=== PATIENT | male | born 1935 | race African-American/Black ===

== ENCOUNTER 2023-11-10 22:58 | Inpatient (IN) | payer OTHER, SELFPAY ==
[2023-11-10 18:26] VITALS: BP 160/116
[2023-11-10 19:02] LABS: % Basophils 0.6 % (0-2); % Immature Granulocytes 0.4 % (0-0.5); % Lymphocytes 17.8 % (20.5-51.1); % Monocytes 11.7 % (1.7-9.3); % Neutrophils 65.5 % (42.2-75.2); Absolute Eosinophils 0.2 10^3/uL (0-0.7); Absolute Lymphocytes 0.9 10^3/uL (1.2-3.4); Absolute Monocytes 0.6 10^3/uL (0.1-0.6); Absolute Neutrophils 3.4 10^3/uL (1.4-6.5); Hematocrit 32.2 % (39.0-52.0); Hemoglobin 11.1 g/dL (13.0-18.0); Mean Corp Hgb Conc. 34.5 g/dL (33.0-37.0); Mean Corpuscular Volume 89.9 fL (80.0-94.0); Mean Platelet Volume 11.2 fL (7.4-10.4); Nucleated Red Blood Cells % 0 % (-); Platelet Count 221 10^3/uL (130-400); Red Blood Cell Count 3.58 10^6/uL (4.70-6.10); Red Cell Dist. Width 13.4 % (11.5-14.5); White Blood Cell Count 5.2 10^3/uL (4.8-10.8)
[2023-11-10 19:17] LABS: ALT (SGPT) 23 U/L (0-50); AST (SGOT) 38 U/L (17-59); Albumin 4.6 g/dl (3.5-5.0); Alkaline Phosphatase 56 U/L (38-126); Blood Urea Nitrogen 21 mg/dl (9-20); Calcium 10.1 mg/dl (8.4-10.2); Carbon Dioxide 23 mmol/L (22-30); Chloride 104 mmol/L (98-107); Glucose 123 mg/dl (70-99); Potassium 3.8 mmol/L (3.5-5.1); Sodium 138 mmol/L (135-145); Total Bilirubin 1.7 mg/dl (0.2-1.3); Total Protein 7.5 g/dl (6.3-8.2); eGFR > 60.00
--- NOTE | 2023-11-10 20:00 | ED.GENMED ---
History of Present Illness
<Laura Bradley MD, Resident - Last Filed: 11/10/23 22:46>
General
Chief Complaint: Dehydration Symptoms
Time Seen by Provider: 11/10/23 19:38
History of Present Illness
History of Present Illness:
-year-old male with history of hypertension, BPH, memory issue ? Presented to the ED with confusion, 2 episodes of falls, urinary retention, constipation. Patient is in the room with his son. His son states that patient was here in March 2023
and was diagnosed with urinary tract infection and was treated with antibiotic. The symptoms are similar to the previous. He had 2 falls yesterday, did not lose conscious, no head trauma. Patient has not had a bowel movement in the past 2 days.
His senses is not himself is more confused and sleepy. Patient states that he feels dizzy when he gets up from his bed. He was febrile with temp of 101 F. Son states that since yesterday he is not able to get up from his bed. He uses a walker to
ambulate.
Past History
<Laura Bradley MD, Resident - Last Filed: 11/10/23 22:46>
Past History
ED Past Medical History: HTN, Hypercholesterolemia and Other (BPH)
Social History
Tobacco: Non-smoker
Personal:
Employment: Retired
Review of Systems
<Laura Bradley MD, Resident - Last Filed: 11/10/23 22:46>
Review of Systems
ABD/GI: Reports constipated
: Reports difficulty voiding
Phy Exam
<Laura Bradley MD, Resident - Last Filed: 11/10/23 22:46>
Physical Exam
Physical Exam:
88 year old elderly male, conversant, comfortable
General Physical Exam
General age: appears stated age
General Habitus: elderly and frail
Neurological Exam
Neurological Exam: alert, no sensory deficits, motor weakness (3/5 bilaterally upper and lower extremities) and other (no neglect)
Course
<Laura Bradley MD, Resident - Last Filed: 11/10/23 22:46>
Orders/Labs/Results
Orders:
Orders
11/10/23 18:49
Complete Blood Count/With Diff Urgent
Comprehensive Metabolic Panel Urgent
11/10/23 18:55
CT Head W/o Iv Contrast Urgent
Comment:
Reason For Exam: fall
11/10/23 20:07
0.9% Sodium Chloride 500 ml [Nss] 500 ml IV BOLUS
11/10/23 20:09
Urinalysis Reflex To Culture Urgent
Date Specimen was Collected: 11/10/23
Time Specimen was Collected: 18:47
Urine Microscopic Reflex Cult Urgent
11/10/23 20:45
CR Chest - 2 Views Urgent
Comment:
Reason For Exam: fever
11/10/23 20:55
Acetaminophen [Tylenol] 650 mg PO NOW STA
11/10/23 21:08
Electrocardiogram (*1) Urgent
Reason for Study: Bradycardia / Tachycardia
EKG- Treatment ONCE
11/10/23 21:37
COVID-19 Antigen Urgent
Source: Nasal Swab
11/10/23 21:46
Aspirin 325 mg PO NOW STA
Clopidogrel Bisulfate [Plavix] 300 mg PO NOW STA
Abnormal Lab Results
11/10/23 11/10/23
18:49 20:09
RBC 3.58 L 10^6/uL
(4.70-6.10)
Hgb 11.1 L g/dL
(13.0-18.0)
Hct 32.2 L %
(39.0-52.0)
MPV 11.2 H fL
(7.4-10.4)
Absolute Lymphs (auto) 0.9 L 10^3/uL
(1.2-3.4)
Lymphocytes % 17.8 L %
(20.5-51.1)
Monocytes % 11.7 H %
(1.7-9.3)
BUN 21 H mg/dl
(9-20)
Glucose 123 H mg/dl
(70-99)
Total Bilirubin 1.7 H mg/dl
(0.2-1.3)
Ur Occult Blood Reflex Trace A
(Negative)
Urine Bilirubin 1+ A
(Negative)
Urine Urobilinogen 3+ A
(Neg - 1+)
Urine RBC 3-6 A /HPF
(0-2)
Urine Bacteria (Reflex) Few A
(Negative)
11/10/23 18:49
11/10/23 18:49
Vital Signs
Initial and Last Documented VS:
Initial Vital Signs
Temp Pulse Resp Pulse Ox
100.1 F 55 16 98
11/10/23 18:16 11/10/23 18:16 11/10/23 18:16 11/10/23 18:16
Last Documented Vital Signs
Temp Pulse Resp BP Pulse Ox
100.9 F H 51 19 195/141 100
11/10/23 20:49 11/10/23 22:00 11/10/23 22:00 11/10/23 22:00 11/10/23 22:00
Brysonlt;Gonzales Hernandez, DO - Last Filed: 11/10/23 21:02>
Orders/Labs/Results
Orders:
Orders
11/10/23 18:49
Complete Blood Count/With Diff Urgent
Comprehensive Metabolic Panel Urgent
11/10/23 18:55
CT Head W/o Iv Contrast Urgent
Comment:
Reason For Exam: fall
11/10/23 20:07
0.9% Sodium Chloride 500 ml [Nss] 500 ml IV BOLUS
11/10/23 20:09
Urinalysis Reflex To Culture Urgent
Date Specimen was Collected: 11/10/23
Time Specimen was Collected: 18:47
Urine Microscopic Reflex Cult Urgent
11/10/23 20:45
CR Chest - 2 Views Urgent
Comment:
Reason For Exam: fever
11/10/23 20:55
Acetaminophen [Tylenol] 650 mg PO NOW STA
11/10/23 21:08
Electrocardiogram (*1) Urgent
Reason for Study: Bradycardia / Tachycardia
EKG- Treatment ONCE
11/10/23 21:37
COVID-19 Antigen Urgent
Source: Nasal Swab
11/10/23 21:46
Aspirin 325 mg PO NOW STA
Clopidogrel Bisulfate [Plavix] 300 mg PO NOW STA
Abnormal Lab Results
11/10/23 11/10/23
18:49 20:09
RBC 3.58 L 10^6/uL
(4.70-6.10)
Hgb 11.1 L g/dL
(13.0-18.0)
Hct 32.2 L %
(39.0-52.0)
MPV 11.2 H fL
(7.4-10.4)
Absolute Lymphs (auto) 0.9 L 10^3/uL
(1.2-3.4)
Lymphocytes % 17.8 L %
(20.5-51.1)
Monocytes % 11.7 H %
(1.7-9.3)
BUN 21 H mg/dl
(9-20)
Glucose 123 H mg/dl
(70-99)
Total Bilirubin 1.7 H mg/dl
(0.2-1.3)
Ur Occult Blood Reflex Trace A
(Negative)
Urine Bilirubin 1+ A
(Negative)
Urine Urobilinogen 3+ A
(Neg - 1+)
Urine RBC 3-6 A /HPF
(0-2)
Urine Bacteria (Reflex) Few A
(Negative)
11/10/23 18:49
11/10/23 18:49
Vital Signs
Initial and Last Documented VS:
Initial Vital Signs
Temp Pulse Resp Pulse Ox
100.1 F 55 16 98
11/10/23 18:16 11/10/23 18:16 11/10/23 18:16 11/10/23 18:16
Last Documented Vital Signs
Temp Pulse Resp BP Pulse Ox
100.9 F H 51 19 195/141 100
11/10/23 20:49 11/10/23 22:00 11/10/23 22:00 11/10/23 22:00 11/10/23 22:00
<Laura Bradley MD, Resident - Last Filed: 11/10/23 22:46>
*Critical Care Note
Total Time (30-74mins, 75-104mins- exclusive of procedures): Not Applicable
<Laura Bradley MD, Resident - Last Filed: 11/10/23 22:46>
Update Note
Update Note:
88-year-old male presented with confusion, dizziness, [address] episodes of [address] Head CT showed left cerebellar infarct.
Neurology was consulted. Loading dose of aspirin to 325 mg p.o. and Plavix 300 mg p.o. to be given. BP to be maintained <200 systolic. Losartan 50 mg PO given now.
EKG shows sinus arrhythmia with premature ventricular complexes.
UA is not indicative for UTI but can potentially be the source of infection and cause of fever.
Plan is to admit the patient for left cerebellar infarct.
Plan discussed with Dr Longoria and Dr Ivey.
ED Attending Note
<Laura Bradley MD, Resident - Last Filed: 11/10/23 22:46>
-
Portions of this chart may have been created with voice recognition software.� Occasional wrong word or��sound alike� substitutions may have occurred due to the inherent limitations of voice recognition software.
<Gonzales GracielaAmina David, DO - Last Filed: 11/10/23 21:02>
ED Attending Note
Patient seen and examined by attending physician: Yes
I performed a history and physical exam of patient and discussed management with resident, I reviewed resident's note and agree with documented findings and plan of care.: Yes
ED Attending Note:
Patient presents with increased confusion, difficulty walking, dizzy, falls. Apparently he was noted to have decreased urine output as well as some constipation.
General: Awake, sleepy but arousable. Is pleasant when he is awake. Seems somewhat confused
Vitals: Hypertensive
Head: Atraumatic
Eyes: Pupils equal, EOMI
Throat: Airway intact, no exudates
Neck: Trachea midline
Lungs: Clear and equal b/l
Heart: Regular rate, no murmurs
Abd: Soft, Nontender, No pulsatile mass
Neuro: Seems generally weak, difficult to assess cerebellar exam as he does not follow the instructions to perform evutdw-ft-ymes or rdce-tx-hxid very well. No significant facial droop
Skin: Warm, dry, no rash
Extremities: pulses equal b/l, no edema
Testing initiated by nursing protocol prior to evaluation shows a CBC which does not have any significant abnormalities. His chemistries show mild elevation of his bilirubin which is likely insignificant. Urinalysis is not consistent with a
urinary tract infection. CT of the head shows a subacute left cerebellar infarct which certainly may explain the patient's symptoms. Dr. Bradley will communicate with neurology for recommendations. Patient is noted to be hypertensive on at least 1
measurement. Will discuss blood pressure parameter suggestions with neurology. EKG is pending.
Discharge Plan
Departure
Patient Disposition: Admit
Date of Disposition: 11/10/23
Time of Disposition: 20:58
Presentation/result/management discussed w/ accepting MD/DO: Hospitalist
Patient with high blood pressure during this ER visit?: Yes
Discharge Problem:
left cerebellar infarct
Prescriptions:
No Action
tamsulosin 0.4 MG capsule
0.4 mg PO DAILY
atorvastatin 10 mg tablet
10 mg PO HS
acetaminophen [Tylenol] 325 mg Tablet
325 mg PO Q6HPRN PRN (Reason: mild pain)
donepezil 10 mg Tablet
10 mg PO HS
pyridoxine (vitamin B6) 100 mg Tablet
100 mg PO HS
losartan 100 mg Tablet
50 mg PO DAILY
cholecalciferol (vitamin D3) [Vitamin D3] 125 mcg (5,000 unit) Tablet
125 mcg PO DAILY
dorzolamide (PF) 2 % Drops
1 drp BOTH EYES DAILY
Referrals:
Rose Kahn DO [Family Provider] - Follow up in 1 week
Activity Restrictions/Additional Instructions:
Please return to the ED with repeated vomiting, chest pain, shortness of breath, palpitations. Close follow-up with family doctor outpatient
Interventions
Interventions:
*Risk Screen - Suicide Last Done: 11/10/23 19:00
ED- Fall Risk Assessment Last Done: 11/10/23 19:00
ED- Cardiac Assessment Last Done: 11/10/23 19:00
ED- Neurological Assessment Last Done: 11/10/23 19:00
ED- Pulmonary Assessment Last Done: 11/10/23 19:00
Discharge Date and Time
Print Language: GREENLANDIC
[2023-11-10 20:08] VITALS: BP 192/108
[2023-11-10] MEDS: NSS 500 IV (20:28)
[2023-11-10 20:29] LABS: Urine Albumin Trace (Neg - Trace); Urine Bilirubin 1+ (Negative); Urine Character Clear (Clear); Urine Color Yellow; Urine Glucose Negative (Negative); Urine Ketone Negative (Negative); Urine Leukocyte Negative (Negative); Urine Nitrite Negative (Negative); Urine Occult Blood Trace (Negative); Urine Specific Gravity 1.015 (<1.030); Urine Urobilinogen 3+ (Neg - 1+)
[2023-11-10 20:38] LABS: Urine Bacteria Few (Negative); Urine Squamous Cell 0-2 /LPF (Few); Urine White Cell 0-2 /HPF (0-5)
[2023-11-10] MEDS: TYLENOL 650 MG PO (20:59)
[2023-11-10 21:00] VITALS: BP 191/110
[2023-11-10 21:34] VITALS: BP 199/105
[2023-11-10 21:55] LABS: COVID-19 Antigen Negative (Negative)
[2023-11-10] MEDS: ASPIRIN 325 MG PO (21:55)
[2023-11-10] MEDS: PLAVIX 300 MG PO (21:55)
[2023-11-10 22:00] VITALS: BP 195/141
--- NOTE | 2023-11-10 22:22 | HPS.HSE ---
Family Physician
-
Family Physician: Sebastián Kahn,
Chief Complaint
-
confusion
fall
sleeping
History of Present Illness
88 year old with PMH for confusion, sleeping more than usual, lethargic since yesterday. he fell yesterday . son is unsure how he fell. since the fall, patient is very weak, tired and sleeping more than usual. as per son, he felt very warm today. he
noticed some mild cough. denied sob, chest pain. patient denied BARNES, dizzy or syncopal episode. denied abdominal pain,n,v,d. denied dysuria or hematuria.
head CT with subacute infract. patient received asa and Plavix in Er. admitting for further management.
Medical History
Past Medical History
Past Medical History: Reports Other
Additional Past Medical History:
BPH
HTN
hld
demential
Alzheimer
type 2 Dm
PVD
Past Surgical History: Reports Other
Additional Past Surgical History:
hernia repair
bladder surgery
Social History
Tobacco: Non-smoker
Alcohol: None
Drug: None
Living: With Family
Family History
Family History: Not pertinent
Allergies / Home Medications
Allergies reflects when Allergies were last updated in [facility].
Home Medications with original date entered in [facility]
Allergy/Medication List:
Allergies
Allergy/AdvReac Type Severity Reaction Status Date / Time
No Known Allergies Allergy Verified 11/10/19 17:44
Home Medications
tamsulosin 0.4 mg capsule 0.4 mg PO DAILY Urinary Issue 07/02/18
atorvastatin 10 mg tablet 10 mg PO HS High Cholesterol 04/15/23
acetaminophen 325 mg tablet (Tylenol) 325 mg PO Q6HPRN PRN mild pain 11/10/23
cholecalciferol (vitamin D3) 125 mcg (5,000 unit) tablet (Vitamin D3) 125 mcg PO DAILY 11/10/23
donepezil 10 mg tablet 10 mg PO HS 11/10/23
dorzolamide (PF) 2 % (PF) eye drops 1 drp BOTH EYES DAILY 11/10/23
losartan 100 mg tablet 50 mg PO DAILY 11/10/23
pyridoxine (vitamin B6) 100 mg tablet 100 mg PO HS 11/10/23
Review of Systems
-
Constitutional: Reports Fatigue
EENT: Reports No Symptoms
Respiratory: Reports Cough
Cardiac: Reports No Symptoms
Abdomen/GI: Reports No Symptoms
: Reports No Symptoms
Musculoskeletal: Reports No Symptoms
Skin: Reports No Symptoms
Neurological: Reports Weakness
Endocrine: Reports No Symptoms
Hematologic/Lymphatic: Reports No Symptoms
Psych: Reports No Symptoms
Physical Exam
Vital Signs
Vital Signs
Temp Pulse Resp BP Pulse Ox
100.9 F H 51 19 195/141 100
11/10/23 20:49 11/10/23 22:00 11/10/23 22:00 11/10/23 22:00 11/10/23 22:00
Physical Exam
General: Well Developed, Well Nourished and No Apparent Distress
HEENT: NormoCephalic, Moist mucous membranes and Atraumatic
Respiratory: Clear
Cardiac: S1/S2 and Regular Rhythm; No Murmur or Rub
GI: Soft, Non Tender, Non Distended and Normal Bowel Sounds; No Organomegaly
Rectal: Deferred by Provider
Musculoskeletal: No Clubbing, No Cyanosis and No Edema
Skin: No Rash
Neuro: Nonfocal/grossly intact
Psych: Confused
Laboratory Results
-
11/10/23 18:49
11/10/23 18:49
Laboratory Results
Total Bilirubin 1.7 mg/dl (0.2-1.3) H 11/10/23 18:49
AST 38 U/L (17-59) 11/10/23 18:49
ALT 23 U/L (0-50) 11/10/23 18:49
Alkaline Phosphatase 56 U/L (38-126) 11/10/23 18:49
Data Reviewed
-
CT Scan: Report Reviewed by me
Lab Data: Labs Reviewed by me
Impression/Plan
-
#confusion/dizziness/fall likely from subacute infract vs active infection
-head CT with left cerebellar subacute infract
-received asa 325, Plavix 300 in ER
-keep sbp<200
-continue asa and Plavix
-obtain ECHO in am , MRI in am
-PT/OT
-neurology following
#fever unclear cause likely aspiration pneumonitis
-UA negative
-covid negative
-chest x ray pending
-initiated on iv Zosyn
#anemia of chronic disease
-hgb stable at 11.1
-no active bleeding
-ctm
#HLD--statin continued
#dementia--Aricept continued
#essential HTN--BP elevated--losartan held, hydralazine added for SBP>200
#BPH-Flomax continued
#DVT prophylaxis--Lovenox
#CODE status-DNR
--- NOTE | 2023-11-10 22:56 | W.PN.UPDATE ---
Update Note
Progress Note Update
This is an addendum to the H&P written by Alexsandra Lakhani on 11/10/2023. Patient seen and examined independently with [employer].
88-year-old male past medical history of hypertension, BPH, hypercholesterolemia, mild mild dementia presenting with 2 falls yesterday and generalized weakness/confusion today. No focal neurological deficits such as headache, blurry vision, slurred
speech, numbness or tingling or focal weakness noted.
Low-grade fever noted in emergency room. Patient does have slight cough. Overall clinical picture suggestive of metabolic encephalopathy due to underlying infection although urinalysis clear. CT head showed left cerebellar subacute infarct.
COVID-negative. Chest x-ray shows shows no clear pneumonia, report pending, although aspiration possible. check blood cultures. IV fluids given in ER.
Neurology recommend aspirin and Plavix. Check MRI brain, echo. Permissive hypertension up to 200 systolic. As needed hydralazine if needed.
[2023-11-10 23:00] VITALS: BP 194/117
[2023-11-10] MEDS: ZOSYN 50 IV (23:03)
[2023-11-11] VITALS (9 sets, daily range): BP systolic 123–195; BP diastolic 58–95; PULSE 55; O2SAT 98; BMI 24.6
--- NOTE | 2023-11-11 00:32 | PTCARENOTE ---
Received patient from ER via stretcher. Pt AAOX3. Forgetful at times. Bed alarm on. Family at bedside. Call prado within reach. Plan of care ongoing.
[2023-11-11 05:15] LABS: Hematocrit 26.8 % (39.0-52.0); Hemoglobin 9.3 g/dL (13.0-18.0); Mean Corp Hgb Conc. 34.7 g/dL (33.0-37.0); Mean Corpuscular Hgb 31.2 pg (27.0-31.0); Mean Corpuscular Volume 89.9 fL (80.0-94.0); Mean Platelet Volume 11.4 fL (7.4-10.4); Platelet Count 184 10^3/uL (130-400); Red Blood Cell Count 2.98 10^6/uL (4.70-6.10); Red Cell Dist. Width 13.2 % (11.5-14.5); White Blood Cell Count 5.3 10^3/uL (4.8-10.8)
[2023-11-11] MEDS: ZOSYN 50 IV ×2 (05:46→12:25)
[2023-11-11] MEDS: FLUSH (NSS) 1 FLUSH IV (05:47)
[2023-11-11 05:49] LABS: Blood Urea Nitrogen 19 mg/dl (9-20); Calcium 9.2 mg/dl (8.4-10.2); Carbon Dioxide 25 mmol/L (22-30); Chloride 106 mmol/L (98-107); Estimated Creatinine Clearance 38 ml/min; Glucose 87 mg/dl (70-99); HDL Cholesterol 81 mg/dl; LDL Cholesterol, Calculated 52 mg/dl; Potassium 3.7 mmol/L (3.5-5.1); Sodium 137 mmol/L (135-145); Total Cholesterol 142 mg/dl (50-199); Triglyceride 49 mg/dl (10-149); Very Low Density Lipoprotein 9 mg/dl (0-30); eGFR 57.81
--- NOTE | 2023-11-11 09:07 | CON.NEURO4 ---
Addendum entered and electronically signed by Destin Gutierrez MD 11/11/23 14:02:
Studies reviewed.
I have personally examined the patient. I reviewed and agree with the RETAIL FIELD REPRESENTATIVE's Note.
My addenda:
Awake, lethargic, interactive. No acute distress.
Speech dysarthric.
Follows 2-step requests w/ difficulty. No tremor.
Extra-ocular movements grossly reduced with upgaze and downgaze.
Facial movements full and symmetric. Hearing intact to normal conversational volume.
Normal UE movements bilaterally.
Neck: full ROM.
Chest: no dyspnea
Heart: no JVD
Ext: (-) Clubbing, (-) Cyanosis, (-) Edema
IMPRESSIONS/RECOMMENDATIONS:
Abrupt onset of worsening mental status and recurrent falls
Most likely secondary to left cerebellar stroke and possible mild edema secondary to same. The period of edema is most likely maximal after 3 days at which time the patient should have improved mentation
Unfortunately, evaluation of the patient's posterior circulation will not change therapy as the patient will require routine antiplatelet agents
Provide dual antiplatelet therapy for 21 days then aspirin without clopidogrel
Continue atorvastatin as LDL is at goal
Goal of normotension
Rehabilitation evaluations
D/W patient
Will continue to follow peripherally
Original Note:
Documented by User: Sherine Ga NP 11/11/23 11:44
Consultation - Neurology 4
-
CONSULTING PHYSICIAN: Destin Gutierrez MD
REFERRING PHYSICIAN: Hospitalists/SAMY Hale
DICTATED BY: SAMY Meek
DATE/TIME OF REQUEST: 11/10/23
DATE/TIME OF CONSULTATION: 11/11/23
Reason for Consultation: CVA
History of Present Illness:
This is a 88-year-old male with a PMH of dementia, HTN, HLD, NIDDM, and tremor who has presented to the hospital on 11/10/23 with report of generalized weakness, dizziness, two falls at home, and worsened confusion starting two days ago on 11/09/23.
CT head was obtained on arrival in the ER and demonstrates a left cerebellar subacute ischemic infarct. He was not a candidate for TNK/IAT due to being outside of the time window. He was loaded with DAPT in the ER. Patient has been hypertensive
since arrival up to 199/105. CXR is suggestive of a left mid to lower pneumonia. Patient currently is very lethargic, only opens his eyes briefly with verbal stimulation and falls back asleep mid sentence. He endorses falling in the shower at home
two days ago, otherwise he cannot provide much history. He denies any headache, dizziness, speech/swallow difficulty, numbness, weakness, chest pain, palpitations, and shortness of breath. He was not previously taking any blood-thinning medications
and he has no history of stroke. He lives with his daughter who is his caregiver. He is taking donepezil 10mg daily, unclear if he is followed by a Neurologist. MMSE was 1630 in 2021.
Past Medical History: Dementia, HTN, HLD, NIDDM, BPH, erectile dysfunction, mitral stenosis/insufficiency, anemia, PVD, constipation, essential tremor, frequent falls, ambulatory dysfunction
Surgical History: Hernia repair, bladder surgery
Family History: Mother-CVA.
Social History: Former smoker. Rare alcohol. Denies illicit drug use. Lives with daughter who is his caregiver.
Allergies: No known allergies.
Home Medications: See below.
Review of Symptoms:
Patient denies any fever, headache, chest pain, shortness of breath, GI or symptoms.
�Per the HPI.�All systems are reviewed negative except above.
Physical Exam:
The patient is afebrile, abdomen is nondistended, breathing is unlabored, skin is warm and dry, no edema. Atrophy in bilateral hands.
NIH Stroke Scale:
I performed the NIH stroke scale on the patient on 11/11/23 at 0915. The patient scored 3 points on the NIH stroke scale assessment, which were assigned as follows: See below.
Neurologic Examination:
The patient is lethargic. Closes eyes frequently, opens eyes briefly to verbal stimuli. He is oriented x3. He is able to follow some one-step commands (limited due to drowsiness) and answer questions appropriately. There is no aphasia or
dysarthria. On cranial nerve assessment, pupils are 3 mm bilateral, round and reactive to light and accommodation. Visual barboza are challenging to assess due, appear absent in all barboza in the right eye?. Extraocular movements are restricted with
up and down gaze. There is no facial asymmetry. Hearing is diminished bilaterally to normal conversation volume. Tongue palate and uvula are midline. Sternocleidomastoid strengths are full bilaterally. Motor strengths are 5/5 bilateral upper and
lower extremities on medical research [place] scale. There is no drift or involuntary movement noted. Deep tendon reflexes are 1+ bilateral upper and lower extremities and Babinski is absent bilaterally. There was no extinction noted on double
simultaneous stimulation. Coordination is intact by finger to nose bilaterally.
Lab Results: See below.
Neuro Imaging:
1. CT Head 11/10/23: Left cerebellar subacute infarct. No evidence of herniation. No acute intracranial hemorrhage. No skull fracture.
Differentials for the patient's presentation include:
1. Subacute left cerebellar ischemic stroke demonstrated on CT head imaging; concern for more extensive area of infarct given profound visual disturbance on exam.
2. TME in the setting of pneumonia.
Patient has the following risk factors for their symptoms: HTN, HLD, age, pneumonia, dementia
IV Tenecteplase/IAT candidacy: He was not a candidate for TNK/IAT due to being outside of the time window.
Recommendations:
-Continue DAPT with aspirin 81mg and Plavix 75mg daily for 21 days. After 21 days, discontinue Plavix and continue aspirin 81mg daily only, indefinitely.
-Goal normotension (SBP<180) as symptom onset was greater than 24 hours ago.
-MRI brain noncontrast pending.
-TTE pending.
-LDL goal <70. LDL is 52. Okay to continue home atorvastatin 10mg daily as LDL is at goal.
-Goal normoglycemia, hbA1c is pending.
-NIHSS and neurological checks per unit guidelines.
-Provide patient with a stroke education packet.
-PT/OT/ST evaluations.
-DVT prophylaxis.
-Will follow pending results.
Discussed patient care with: Dr. Gutierrez, the patient
Vital Signs and Labs
.
Vital Signs and Labs:
Lab Results
11/11/23 04:22
11/11/23 04:22
Temp Pulse Resp BP Pulse Ox
98.3 F 41 16 195/95 99
11/11/23 07:15 11/11/23 07:15 11/11/23 07:15 11/11/23 07:15 11/11/23 07:15
Medications
-
Active Medications
Generic Name Dose Route Start Last Admin
Trade Name Freq PRN Reason Stop Dose Admin
Acetaminophen 650 mg 11/10/23 23:43
Acetaminophen 650 Mg Rectal Suppository RECTAL 12/08/23 23:42
Q4HPRN PRN
BARNES, mild pain, or temp >100.4F
Acetaminophen 650 mg 11/10/23 23:43
Acetaminophen 325 Mg Tablet PO 12/08/23 23:42
Q4HPRN PRN
BARNES, mild pain, or temp >100.4F
Aspirin 81 mg 11/11/23 08:00 11/11/23 09:56
Aspirin 81 Mg Chewable Tablet PO 12/09/23 07:59 81 mg
DAILY LATISHA Administration
Atorvastatin Calcium 10 mg 11/11/23 22:00
Atorvastatin (Lipitor) 10 Mg Tablet PO 12/09/23 21:59
HS LATISHA
Cholecalciferol 125 mcg 11/11/23 08:00 11/11/23 09:56
Cholecalciferol (Vitamin D3) 125 Mcg Tablet (5,000 Units) PO 12/09/23 07:59 125 mcg
DAILY LATISHA Administration
Clopidogrel Bisulfate 75 mg 11/11/23 08:00 11/11/23 09:56
Clopidogrel 75 Mg Tablet PO 12/09/23 07:59 75 mg
DAILY LATISHA Administration
Donepezil HCl 10 mg 11/11/23 22:00
Donepezil Hcl 10 Mg Tablet PO 12/09/23 21:59
HS LATISHA
Dorzolamide HCl 1 drop 11/11/23 08:00 11/11/23 09:56
Dorzolamide 2% (Ophthalmic Solution) 10 Ml Bottle BOTH EYES 12/09/23 07:59 1 drop
DAILY LATISHA Administration
Hydralazine HCl 10 mg 11/10/23 23:43
Hydralazine 20 Mg/Ml Vial IV 12/08/23 23:42
Q6HPRN PRN
hypertension
Piperacillin Sod/Tazobactam Sod 3.375 gram in 50 mls @ 100 mls/hr 11/11/23 06:00 11/11/23 05:46
Zosyn IV 50 mls
Q6H LATISHA Administration
Sodium Chloride 0 flush 11/10/23 23:00 11/11/23 05:47
Sodium Chloride 0.9% (Flush) Syringe IV 12/08/23 22:59 1 flush
PER PROTOCOL LATISHA Administration
Tamsulosin HCl 0.4 mg 11/11/23 08:00 11/11/23 09:56
Tamsulosin 0.4 Mg Capsule PO 12/09/23 07:59 0.4 mg
DAILY LATISHA Administration
Home Medications
�Medication �Instructions �Recorded
tamsulosin 0.4 mg capsule 0.4 mg PO DAILY Urinary Issue 07/02/18
atorvastatin 10 mg tablet 10 mg PO HS High Cholesterol 04/15/23
acetaminophen 325 mg tablet 325 mg PO Q6HPRN PRN mild pain 11/10/23
(Tylenol)
cholecalciferol (vitamin D3) 125 125 mcg PO DAILY Supplement 11/10/23
mcg (5,000 unit) tablet (Vitamin
D3)
donepezil 10 mg tablet 10 mg PO HS Neurological Condition 11/10/23
dorzolamide (PF) 2 % (PF) eye drops 1 drp BOTH EYES DAILY Eye Condition 11/10/23
losartan 100 mg tablet 50 mg PO DAILY Blood Pressure 11/10/23
pyridoxine (vitamin B6) 100 mg 100 mg PO HS Supplement 11/10/23
tablet
NIH Stroke Score
Subsequent NIH Scale
Date of Subsequent NIH Scale: 11/11/23
Time of Subsequent NIH Scale: 09:15
NIH Stroke Score
Level of Consciousness: 1 - Arousable
LOC Questions: 0-Answers both correctly
LOC Commands: 0-Performs both correctly
Best Horizontal Gaze: 0-Normal
Visual Barboza: 2=Full hemianopia (Challenging to assess, possibly blind in the right eye?)
Facial Palsy: 0=Normal, symmetrical
Motor - Right Arm: 0=No drift 10 seconds
Motor - Left Arm: 0=No drift 10 seconds
Motor - Right Le-No drift 5 seconds
Motor - Left Le-No drift 5 seconds
Limb Ataxia: 0-Absent
Sensation: 0-Normal
Best Language: 0-No aphasia
Dysarthria: 0-Normal
Extinction and Inattention: 0-No abnormality
Total Score:: 3
Modified [place] (mRS) Score
Modified [place] Scale (mRS): Moderately severe disability. Unable to attend to bodily needs/walk.
Score: 4
Alteplase Contraindication
Inclusion and Exclusion criteria reviewed: Yes
Reasons for NON-Tx with Thrombolytics ABSOLUTE Exclusions: Greater than 4.5 hrs from onset of sxs

Documented by User: Destin Gutierrez MD 11/11/23 13:54
NIH Stroke Score
NIH Stroke Score
Total Score:: 3
Modified [place] (mRS) Score
Score: 4
[2023-11-11] MEDS: VITAMIN D3 (cholecalciferol) 125 MCG PO (09:56)
[2023-11-11] MEDS: FLOMAX 0.4 MG PO (09:56)
[2023-11-11] MEDS: TRUSOPT 2% OPHTHALMIC SOLUTION 1 DROP BOTH EYES (09:56)
[2023-11-11] MEDS: PLAVIX 75 MG PO (09:56)
[2023-11-11] MEDS: LOW STRENGTH ASPIRIN 81 MG PO (09:56)
--- NOTE | 2023-11-11 11:57 | PTOTSP ---
[facility]OT[facility] FA[facility] Evaluations
Patient with signs concerning for at least moderate-severe oral and unspecified pharyngeal dysphagia and signs concerning for aspiration with solids. Patient with a history of silent aspiration of thin liquids (video swallow study 04/17/2023) and
this cannot be ruled out bedside. Suspect current presentation is exacerbated by significant lethargy.
Patient with acute on chronic risk factors for dysphagia (i.e., subacute stroke, Alzheimer's dementia, acute lethargy). Chest x-ray 11/10/2023 with PNA which may be concerning for a complication from aspiration.
Speech/language/cognitive evaluation limited. At least mild dysarthria noted as well as concerns for receptive language and cognitive impairments.
Recommend:
1. NPO until further objective assessment via video swallow study
2. Medications - essential medications crushed in puree if SHAQUILLE appropriate; if s/s aspiration noted then via non-oral means
3. Oral care 3x daily
4. Hold aspiration risk hydration protocol due to lethargy
5. Video swallow study if/when SHAQUILLE appropriate.
6. Continue speech/language/cognitive evaluation when SHAQUILLE appropriate.
--- NOTE | 2023-11-11 13:55 | W.PN.HOSP.TC ---
Today's Communication/Plan
-
CVA workup
Aspiration precautions
VSE.
IV fluids for maintenance
DAPT with PPI prophylaxis.
Physical therapy assessment
Monitor hemoglobin
Assessment / Plan
Assessment / Plan
Impression:
Acute left cerebellar CVA.
Toxic metabolic encephalopathy.
Acute left lower lobe aspiration pneumonia.
Conditions prior to admission:
Essential hypertension
Dyslipidemia
BPH.
Type 2 diabetes by history.
PAD.
Essential tremor.
Ambulatory dysfunction with frequent falls.
Plan:
Acute left ischemic cerebellar CVA.
Reported ataxia with physical therapy evaluation.
Rest of the neurologic exam with no focal findings other than patient being lethargic with muffled diminished speech. Vision field deficit on the right eye.
Neurology input appreciated
Ongoing workup:
Echocardiogram
MRI of the brain.
Physical therapy assessment.
Initiated on DAPT with aspirin and Plavix for 21 days with plan to transition to aspirin alone after.
Goal normotension
Continue statin
Pending hemoglobin A1c
Toxic metabolic encephalopathy likely multifactorial in the settings of acute CVA as well as aspiration pneumonia
See below
Check TSH
Check B12
Left lower lobe infiltrate secondary to aspiration pneumonia.
Stable respiratory status with no requirements of supplemental oxygen
Continue aspiration precautions
Speech and swallow evaluation including VSE
N.p.o. except meds for now
IV fluids for maintenance
Narrow antibiotics from Zosyn to Unasyn to cover aspiration pathogens
Prior history of UTI. Urinalysis not consistent with infection.
Anemia likely chronic normocytic
Noted hemoglobin drop 11-9.
Monitor closely while on DAPT.
Start PPI for prophylaxis
Check iron studies
Heme check stool
Essential hypertension.
Continue losartan. Continue IV hydralazine monitor blood pressure with the goal of normotension
Type 2 diabetes by history.
Not on any glucose lowering medications prior to admission
Check hemoglobin A1c
BPH
Continue Flomax
Monitor for retention.
CODE STATUS DNR
Anticipated Discharge: 24 - 48 hours
Subjective/Interval History
-
Date of Service: November 11, 2023
Objective Data
-
Labs:
Laboratory Results
11/11/23
04:22
WBC 5.3
Hgb 9.3 L
Hct 26.8 L
Plt Count 184
Sodium 137
Potassium 3.7
Chloride 106
Carbon Dioxide 25
BUN 19
Creatinine 1.2
Glucose 87
Calcium 9.2
Vital Signs:
Vital Signs
Temp Pulse Resp BP Pulse Ox
97.7 F 58 16 123/70 98
11/11/23 11:00 11/11/23 11:00 11/11/23 11:00 11/11/23 11:00 11/11/23 11:00
I&O
11/10/23 11/11/23 11/12/23
06:59 06:59 06:59
Intake Total 50 / 50
Output Total 175 / 175
Balance -125 / -125
Physical Exam
-
General: Well Developed and No Apparent Distress
HEENT: Normocephalic, Atraumatic and Moist Mucous Membranes
Respiratory: Clear to Auscultation
Cardiac: Regular Rhythm and S1/S2; Negative Murmur, Rub or Gallop
GI: Soft, Nontender, Nondistended and Normal Bowel Sounds; Negative Organomegaly
Rectal: Deferred by Provider
Musculoskeletal: No Clubbing, No Cyanosis and No Edema
Skin: Negative Rash
Neuro: Awake, Alert, Oriented, Nonfocal/Grossly Intact and Other (Diminished speech )
[2023-11-11 13:59] LABS: Glycohemoglobin (HgbA1c) 5.9 % (4.0-5.6)
[2023-11-11 14:08] LABS: Iron 48 ug/dl (49-181)
[2023-11-11 14:12] LABS: TSH Reflex To Free T4 1.88 uIU/ml (0.47-4.68)
[2023-11-11 14:18] LABS: Percent Saturation 23 % (20-50); Total Iron Binding Capacity 208 ug/dl (261-462)
[2023-11-11 14:47] LABS: Folate 8.7 ng/ml (2.76-20); Vitamin B12 384 pg/ml (239-931)
[2023-11-11] MEDS: PROTONIX 20 MG PO (15:29)
[2023-11-11] MEDS: NSS 1000 IV (15:29)
[2023-11-11] MEDS: COZAAR 50 MG PO (15:30)
--- NOTE | 2023-11-11 16:02 | CM ---
Alert awake forgetful patient who lives with his daughter Pam and son Micheal JAIN who lives in a 1 story home with 2 step to enter and bed and bathroom on first floor. He is assisted in all activities of daily living.Spoke with daughter Pam
reviewed Pt OT lisy for Acute rehab . Requested [facility] . will need auth for [facility].He uses a walker.
[facility]
PLAN To acute rehab [facility] will need auth
[2023-11-11] MEDS: UNASYN IV ×2 (16:49→21:37)
[2023-11-11] MEDS: ARICEPT 10 MG PO (20:34)
[2023-11-11] MEDS: LIPITOR 10 MG PO (20:34)
[2023-11-12] VITALS (8 sets, daily range): BP systolic 137–208; BP diastolic 77–101
--- NOTE | 2023-11-12 02:57 | DOWNTIME ---
There was a [employer] Client Circular Stuffer Downtime on 11/12/2023 from 0100 to 11/12/2023 at 0255. Downtime documentation of patient's care, including medication administrations, has been reconciled in the electronic record per guidelines. Refer to the
patient's paper chart under the miscellaneous tab to see printed paper medication records and downtime forms.
[2023-11-12] MEDS: UNASYN IV ×4 (03:28→21:21)
[2023-11-12] MEDS: NSS 1000 IV (05:00)
[2023-11-12 07:24] LABS: Blood Urea Nitrogen 17 mg/dl (9-20); Calcium 9.2 mg/dl (8.4-10.2); Carbon Dioxide 24 mmol/L (22-30); Chloride 104 mmol/L (98-107); Estimated Creatinine Clearance 41 ml/min; Glucose 59 mg/dl (70-99); Potassium 3.8 mmol/L (3.5-5.1); Sodium 138 mmol/L (135-145); eGFR > 60.00
[2023-11-12 07:28] LABS: Hematocrit 30.1 % (39.0-52.0); Hemoglobin 10.3 g/dL (13.0-18.0); Mean Corp Hgb Conc. 34.2 g/dL (33.0-37.0); Mean Corpuscular Hgb 31.4 pg (27.0-31.0); Mean Corpuscular Volume 91.8 fL (80.0-94.0); Mean Platelet Volume 11.5 fL (7.4-10.4); Platelet Count 207 10^3/uL (130-400); Red Blood Cell Count 3.28 10^6/uL (4.70-6.10); Red Cell Dist. Width 13.2 % (11.5-14.5); White Blood Cell Count 5.7 10^3/uL (4.8-10.8)
--- NOTE | 2023-11-12 08:04 | W.PN.NEURO.1 ---
Addendum entered and electronically signed by Korey Longoria MD 11/12/23 10:30:
I saw and evaluated the patient I reviewed the note by Sherine Ga agreed the findings of following comments:
One 88-year-old male with a past med history of dementia most likely Alzheimer's versus vascular type, hypertension, hyperlipidemia and diabetes presented to hospital with generalized weakness dizziness and falls and was found to have a significant
left-sided ischemic cerebellar stroke on CT head noncontrast.
Video swallow showed significant dysphagia and patient is recommended for n.p.o. at this time given aspiration risks.
Patient with no complaints at this time he understands he is in the hospital.
Neurologic examination shows an awake patient who is confused, oriented to himself and hospital and able to relate that he lives with his daughter, difficulty with complex commands and impaired memory.
Dysarthria is present, extraocular wounds are full, smile is grossly symmetric, generalized weakness 4 -/5 shoulder abduction bilaterally in hip flexion bilaterally.
CT head noncontrast showing an acute to early subacute ischemic stroke in the left cerebellum and the superior cerebellar as well as PICA territory, no hemorrhage
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
Aspiration pneumonia present.
Encephalopathy most likely multifactorial due to new ischemic stroke in a patient with existing mild cognitive impairment/dementia, as well as aspiration pneumonia.
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 Dysphagia most likely multifactorial from acute encephalopathy, baseline cognitive impairment and new stroke.
Recommendations
-Attempt MRI brain without contrast but would not sedate for this, if not able to tolerate the study then would simply not pursue brain MRI given has had clear stroke on CT head
-Aspiration precautions, n.p.o.
-Goals of care regarding prognosis which is existing medical conditions, significant new dysphagia
-Rectal aspirin in the meantime
-Cardiac telemetry
-Goal normotension
-Neurologic checks NIH stroke scales
Original Note:
Documented by User: Sherine Ga NP 11/12/23 10:11
Today's Communication / Plan
-
.
Neuro Assessment/Plan
Assessment
This is a 88-year-old male with a PMH of dementia, HTN, HLD, NIDDM, and tremor who has presented to the hospital on 11/10/23 with report of generalized weakness, dizziness, two falls at home, and worsened confusion starting on 11/09/23. CT head was
obtained on arrival in the ER and demonstrates a left cerebellar subacute ischemic infarct. He was not a candidate for TNK/IAT due to being outside of the time window. He was loaded with DAPT in the ER. Patient has been hypertensive since arrival up
to 199/105. CXR is suggestive of a left mid to lower pneumonia.
-CT Head 11/10/23: Left cerebellar subacute infarct. No evidence of herniation. No acute intracranial hemorrhage. No skull fracture.
-Video Swallow 11/12/23: Airway aspiration noted with thin liquids, nectar consistency and honey consistency.
-TTE 11/11/23: EF 67%, mild concentric LVH, indeterminate diastolic function, mildly dilated left and right atria.
I. Subacute left cerebellar ischemic stroke demonstrated on CT head imaging; concern for more extensive area of infarct given visual disturbance on exam.
II. TME in the setting of pneumonia.
III. Dysphagia.
Plan
-Patient is NPO, no meds. Provide rectal ASA daily until diet can be resumed or oral access is obtained, then resume DAPT with aspirin 81mg and Plavix 75mg daily for 21 days. After 21 days, discontinue Plavix and continue aspirin 81mg daily only,
indefinitely.
-Goal normotension (SBP<180) as symptom onset was greater than 24 hours ago.
-MRI brain noncontrast pending.
-TTE pending.
-LDL goal <70. LDL is 52. Okay to continue home atorvastatin 10mg daily as LDL is at goal, resume this when cleared for oral intake.
-Goal normoglycemia, hbA1c is 5.9.
-NIHSS and neurological checks per unit guidelines.
-Provide patient with a stroke education packet.
-PT/OT/ST evaluations.
-DVT prophylaxis.
-Will follow pending results.
Subjective/Objective
Subjective Data
Date of Service: November 12, 2023
No acute events overnight. Patient offers no complaints. Denies headache, dizziness, vision changes, speech/swallow difficulty, numbness, weakness, chest pain, palpitations, and shortness of breath.
Objective Data
Vital Signs
Temp Pulse Resp BP Pulse Ox
98.7 F 42 16 174/83 100
11/12/23 03:04 11/12/23 03:04 11/12/23 03:04 11/12/23 03:04 11/12/23 03:04
Lab Results
11/12/23 05:39
11/12/23 05:39
Sodium 138 mmol/L (135-145) 11/12/23 05:39
Potassium 3.8 mmol/L (3.5-5.1) 11/12/23 05:39
BUN 17 mg/dl (9-20) 11/12/23 05:39
Glucose 59 mg/dl (70-99) L 11/12/23 05:39
Calcium 9.2 mg/dl (8.4-10.2) 11/12/23 05:39
LDL Cholesterol, Calc 52 mg/dl 11/11/23 04:22
Vitamin B12 384 pg/ml (239-931) 11/11/23 04:22
Patient Allergies
No Known Allergies Allergy (Verified 11/10/19 17:44)
LDL Level: <70, continue statin
Review of Systems
-
History Source: Patient
EENT: Negative Blurry Vision, Decreased Vision or Swallowing Difficulty
Respiratory: Negative Cough or Trouble Breathing
Cardiac: Negative Chest Pain or Palpitations
Abdomen/GI: Negative Nausea
Neuro: Negative Dizzy, Headache, Weakness, Numbness, Ataxia, Tremors or Speech Problem
Physical Exam
-
General: No Apparent Distress
Eyes: No Ptosis and PERRLA
HEENT: Normocephalic and Atraumatic
Neck: Full Range of Motion
Respiratory: No Dyspnea
GI: Non-distended
Extremities: No Clubbing, No Cyanosis and No Edema
Psych: Unremarkable
Extended Neurological Exam
Mood & Affect: Mood Unremarkable and Affect Unremarkable
Attention Span & Concentration: Lethargic, Closes Eyes after Stimulation and Unable to Perform 2 Step Request (due to lethargy)
Memory: Unremarkable (AAOx3, poor historian)
Tremor: Hand Tremor Absent and Head Tremor Absent
Involuntary Movement: None
Speech: Rate of Production Unremarkable and Dysarthric
Cranial Nerve II: Left Eye: Pupillary Reactivity Unremarkable, Pupillary Size Unremarkable and Visual Barboza Reduced (challenging to assess, right field cut?)
Cranial Nerve II: Right Eye: Pupillary Reactivity Unremarkable, Pupillary Size Unremarkable and Visual Barboza Reduced (challenging to assess, right field cut?)
Cranial Nerves III, IV, : Extraocular Movement: Extraocular Movement Left, Extraocular Movement Right and Extraocular Movement Full in all Directions
Cranial Nerve V: Facial Sensation: Intact to Light Touch
Cranial Nerve VII: Facial Symmetry: Normal Facial Symmetry
Cranial Nerve VIII: Hearing: Grossly Reduced
Cranial Nerves IX, X: Palate Movement: Palate Elevation Symmetric
Cranial Nerve XI: Shoulder Shrug: Unremarkable
Cranial Nerve XII: Tongue Protusion: Midline
Muscle Strength, Overall: Full Throughout
Muscle Bulk & Tone: Bulk Unremarkable and Tone Unremarkable
Pronator Drift: No Drift in Upper Extremities and No Drift in Lower Extremities
Touch Sensation: Double Simultaneous Stimulation Unremarkable
Coordination: Owgylp-nors-tiffxr Testing Unremarkable
Babinski Sign: Absent Bilaterally
Gait & Station: Unable to Assess
Modified [place] Score (MRS)
-
Modified [place] Scale (mRS): Moderately severe disability. Unable to attend to bodily needs/walk.
Score: 4
Data Reviewed
-
CT Head: Report Reviewed and Image Reviewed
MRI Head: Pending
Labs: Report Reviewed
Lipid Profile: Report Reviewed
HgbA1C: Report Reviewed
Reviewed with: Physician and Patient
Medications
-
Active Medications
Generic Name Dose Route Start Last Admin
Trade Name Freq PRN Reason Stop Dose Admin
Acetaminophen 650 mg 11/10/23 23:43
Acetaminophen 650 Mg Rectal Suppository RECTAL 12/08/23 23:42
Q4HPRN PRN
BARNES, mild pain, or temp >100.4F
Acetaminophen 650 mg 11/10/23 23:43
Acetaminophen 325 Mg Tablet PO 12/08/23 23:42
Q4HPRN PRN
BARNES, mild pain, or temp >100.4F
Aspirin 81 mg 11/11/23 08:00 11/11/23 09:56
Aspirin 81 Mg Chewable Tablet PO 12/09/23 07:59 81 mg
DAILY LATISHA Administration
Atorvastatin Calcium 10 mg 11/11/23 22:00 11/11/23 20:34
Atorvastatin (Lipitor) 10 Mg Tablet PO 12/09/23 21:59 10 mg
HS LATISHA Administration
Cholecalciferol 125 mcg 11/11/23 08:00 11/11/23 09:56
Cholecalciferol (Vitamin D3) 125 Mcg Tablet (5,000 Units) PO 12/09/23 07:59 125 mcg
DAILY LATISHA Administration
Clopidogrel Bisulfate 75 mg 11/11/23 08:00 11/11/23 09:56
Clopidogrel 75 Mg Tablet PO 12/09/23 07:59 75 mg
DAILY LATISHA Administration
Donepezil HCl 10 mg 11/11/23 22:00 11/11/23 20:34
Donepezil Hcl 10 Mg Tablet PO 12/09/23 21:59 10 mg
HS LATISHA Administration
Dorzolamide HCl 1 drop 11/11/23 08:00 11/11/23 09:56
Dorzolamide 2% (Ophthalmic Solution) 10 Ml Bottle BOTH EYES 12/09/23 07:59 1 drop
DAILY LATISHA Administration
Hydralazine HCl 10 mg 11/10/23 23:43
Hydralazine 20 Mg/Ml Vial IV 12/08/23 23:42
Q6HPRN PRN
hypertension
Ampicillin Sodium/Sulbactam 60 mls @ 120 mls/hr 11/11/23 16:00 11/12/23 03:28
Sodium 1.5 gm/ Sodium Chloride IV 60 mls
Q6H LATISHA Administration
Sodium Chloride 1,000 mls @ 75 mls/hr 11/11/23 14:15 11/12/23 05:00
Nss IV 11/12/23 16:54 1,000 mls
[id number] LATISHA Administration
Losartan Potassium 50 mg 11/11/23 14:30 11/11/23 15:30
Losartan 50 Mg Tablet PO 12/09/23 14:29 50 mg
DAILY LATISHA Administration
Pantoprazole Sodium 20 mg 11/11/23 15:00 11/11/23 15:29
Pantoprazole 20 Mg Delayed Release Tablet PO 12/09/23 14:59 20 mg
DAILY LATISHA Administration
Sodium Chloride 0 flush 11/10/23 23:00 11/11/23 05:47
Sodium Chloride 0.9% (Flush) Syringe IV 12/08/23 22:59 1 flush
PER PROTOCOL LATISHA Administration
Tamsulosin HCl 0.4 mg 11/11/23 08:00 11/11/23 09:56
Tamsulosin 0.4 Mg Capsule PO 12/09/23 07:59 0.4 mg
DAILY LATISHA Administration
Home Medications
�Medication �Instructions �Recorded
tamsulosin 0.4 mg capsule 0.4 mg PO DAILY Urinary Issue 07/02/18
atorvastatin 10 mg tablet 10 mg PO HS High Cholesterol 04/15/23
acetaminophen 325 mg tablet 325 mg PO Q6HPRN PRN mild pain 11/10/23
(Tylenol)
cholecalciferol (vitamin D3) 125 125 mcg PO DAILY Supplement 11/10/23
mcg (5,000 unit) tablet (Vitamin
D3)
donepezil 10 mg tablet 10 mg PO HS Neurological Condition 11/10/23
dorzolamide (PF) 2 % (PF) eye drops 1 drp BOTH EYES DAILY Eye Condition 11/10/23
losartan 100 mg tablet 50 mg PO DAILY Blood Pressure 11/10/23
pyridoxine (vitamin B6) 100 mg 100 mg PO HS Supplement 11/10/23
tablet
NIH Stroke Score
Subsequent NIH Scale
Date of Subsequent NIH Scale: 11/12/23
Time of Subsequent NIH Scale: 09:45
NIH Stroke Score
Level of Consciousness: 1 - Arousable
LOC Questions: 0-Answers both correctly
LOC Commands: 0-Performs both correctly
Best Horizontal Gaze: 0-Normal
Visual Barboza: 1=Partial hemianopia
Facial Palsy: 0=Normal, symmetrical
Motor - Right Arm: 0=No drift 10 seconds
Motor - Left Arm: 0=No drift 10 seconds
Motor - Right Le-No drift 5 seconds
Motor - Left Le-No drift 5 seconds
Limb Ataxia: 0-Absent
Sensation: 0-Normal
Best Language: 0-No aphasia
Dysarthria: 1-Mild slurring
Extinction and Inattention: 0-No abnormality
Total Score:: 3
Modified [place] (mRS) Score
Modified [place] Scale (mRS): Moderately severe disability. Unable to attend to bodily needs/walk.
Score: 4

Documented by User: Korey Longoria MD 11/12/23 10:23
Modified [place] Score (MRS)
-
Score: 4
NIH Stroke Score
NIH Stroke Score
Total Score:: 3
Modified [place] (mRS) Score
Score: 4
--- NOTE | 2023-11-12 09:10 | CM ---
PT OT recommended acute rehab.
Spoke with Pam nelson who agreed she wanted [facility] for a acute rehab picl.
[facility] referral in care port.
Will continue to assess and assist with dc planning.
Will need auth
PLAN Possible acute rehab will need auth
--- NOTE | 2023-11-12 09:32 | PTOTSP ---
Video Swallow Study
Summary: Patient with mild-moderate oral and severe pharyngeal dysphagia. Etiology of dysphagia is due to acute on chronic factors (i.e., fluctuating SHAQUILLE, TME, subacute stroke, Alzheimer�s dementia). Patient aspirated thin, mildly thick, and
moderately thick liquids with a cough response for the majority of trials. Please see patient care note for full details of penetration/aspiration and swallowing physiology. Patient currently has signs concerning for aspiration complications
(i.e., PNA) and is not appropriate for an oral diet at this time.
Recommend:
1. NPO - consider temporary non-oral means pending goals of care
2. Medications - non-oral
3. Oral care 3x daily
4. Aspiration Risk Hydration Protocol - sparing single sips of water ONLY if awake/alert, ONLY after oral care, ONLY with 1:1 assist. D/C if signs of respiratory compromise noted.
5. Dysphagia tx at the acute care level pending patient/family goals of care. Possible barriers include fluctuating SHAQUILLE and cognition.
[2023-11-12] MEDS: ASPIRIN 300 MG RECTAL (12:51)
[2023-11-12] MEDS: TRUSOPT 2% OPHTHALMIC SOLUTION 1 DROP BOTH EYES (12:56)
[2023-11-12] MEDS: PLAVIX PO (14:58)
[2023-11-12] MEDS: FLOMAX PO (14:58)
[2023-11-12] MEDS: LOW STRENGTH ASPIRIN PO (14:58)
[2023-11-12] MEDS: COZAAR PO (14:58)
[2023-11-12] MEDS: PROTONIX PO (14:59)
[2023-11-12] MEDS: VITAMIN D3 (cholecalciferol) PO (14:59)
--- NOTE | 2023-11-12 17:31 | W.PN.HOSP.TC ---
Today's Communication/Plan
-
Goals of care discussion with patient son and daughter over the phone.
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
Family understand that artificial means of feeding including feeding tube either double or PEG tube would not improve quality of life or prolong survival. They will plan for additional gathering on 11/12 considering and leading towards hospice
evaluation.
Assessment / Plan
Assessment / Plan
Impression:
Acute left cerebellar CVA.
Toxic metabolic encephalopathy.
Acute left lower lobe aspiration pneumonia.
Conditions prior to admission:
Essential hypertension
Dyslipidemia
BPH.
Type 2 diabetes by history.
PAD.
Essential tremor.
Ambulatory dysfunction with frequent falls.
Plan:
Acute left ischemic cerebellar CVA.
Confirmed with MRI of the brain
Reported ataxia with physical therapy evaluation.
Rest of the neurologic exam with no focal findings other than patient being lethargic with muffled diminished speech. Vision field deficit on the right eye.
Neurology input appreciated
Ongoing workup:
Echocardiogram with preserved biventricular function and no cardioembolic source
Physical therapy assessment.
Indicated dual antiplatelet therapy for 21 days, although with inability to take p.o. transition to rectal aspirin
Goal normotension
Continue statin
Hemoglobin A1c 5.9
Toxic metabolic encephalopathy likely multifactorial in the settings of acute CVA as well as aspiration pneumonia
See below
Check TSH within normal limits
Check B12 within normal limits
Left lower lobe infiltrate secondary to aspiration pneumonia.
Stable respiratory status with no requirements of supplemental oxygen
Continue aspiration precautions
Speech and swallow evaluation including VSE confirming severe aspiration
N.p.o. except meds for now while goals of care discussion
IV fluids for maintenance
Narrow antibiotics from Zosyn to Unasyn to cover aspiration pathogens
Prior history of UTI. Urinalysis not consistent with infection.
Anemia likely chronic normocytic
Noted hemoglobin drop 11-9.
Monitor closely while on DAPT.
Start PPI for prophylaxis
Check iron studies
Heme check stool
Essential hypertension.
Continue losartan. Continue IV hydralazine monitor blood pressure with the goal of normotension
Type 2 diabetes by history.
Not on any glucose lowering medications prior to admission
Check hemoglobin A1c
BPH
Continue Flomax
Monitor for retention.
CODE STATUS DNR
Goals of care discussion with patient son and daughter over the phone.
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
Family understand that artificial means of feeding including feeding tube either double or PEG tube would not improve quality of life or prolong survival. They will plan for additional gathering on 11/12 considering and leading towards hospice
evaluation.
Anticipated Discharge: 24 - 48 hours
Subjective/Interval History
-
Date of Service: November 12, 2023
Objective Data
-
Labs:
Laboratory Results
11/12/23
05:39
WBC 5.7
Hgb 10.3 L
Hct 30.1 L
Plt Count 207
Sodium 138
Potassium 3.8
Chloride 104
Carbon Dioxide 24
BUN 17
Creatinine 1.1
Glucose 59 L
Calcium 9.2
Vital Signs:
Vital Signs
Temp Pulse Resp BP Pulse Ox
98.6 F 56 20 137/77 100
11/12/23 15:38 11/12/23 15:38 11/12/23 15:38 11/12/23 15:38 11/12/23 15:38
I&O
11/11/23 11/12/23 11/13/23
06:59 06:59 06:59
Intake Total 50 / 50 1020 / 1020
Output Total 175 / 175 100 / 100
Balance -125 / -125 920 / 920
Physical Exam
-
General: Well Developed and No Apparent Distress
HEENT: Normocephalic, Atraumatic and Moist Mucous Membranes
Respiratory: Rhonchi (Coarse diffuse rhonchi)
Cardiac: Regular Rhythm and S1/S2; Negative Murmur, Rub or Gallop
GI: Soft, Nontender, Nondistended and Normal Bowel Sounds; Negative Organomegaly
Rectal: Deferred by Provider
Musculoskeletal: No Clubbing, No Cyanosis and No Edema
Skin: Negative Rash
Neuro: Awake, Alert, Oriented, Nonfocal/Grossly Intact and Other (Diminished speech )
[2023-11-12] MEDS: D5/0.45%NSS with KCL 20 MEQ 1000 IV (18:22)
[2023-11-12] MEDS: LIPITOR PO (21:13)
[2023-11-12] MEDS: ARICEPT PO (21:13)
[2023-11-12] MEDS: APRESOLINE 10 MG IV (23:35)
[2023-11-13 03:15] VITALS: BP 160/74
[2023-11-13] MEDS: UNASYN IV ×4 (04:13→21:50)
[2023-11-13 04:55] LABS: % Basophils 0.7 % (0-2); % Eosinophils 4.3 % (0-6); % Immature Granulocytes 0.5 % (0-0.5); % Lymphocytes 12.6 % (20.5-51.1); % Monocytes 10.8 % (1.7-9.3); % Neutrophils 71.1 % (42.2-75.2); Absolute Eosinophils 0.2 10^3/uL (0-0.7); Absolute Lymphocytes 0.7 10^3/uL (1.2-3.4); Absolute Monocytes 0.6 10^3/uL (0.1-0.6); Absolute Neutrophils 3.9 10^3/uL (1.4-6.5); Hematocrit 29.7 % (39.0-52.0); Hemoglobin 10.5 g/dL (13.0-18.0); Mean Corp Hgb Conc. 35.4 g/dL (33.0-37.0); Mean Corpuscular Hgb 31.1 pg (27.0-31.0); Mean Corpuscular Volume 87.9 fL (80.0-94.0); Mean Platelet Volume 10.9 fL (7.4-10.4); Nucleated Red Blood Cells % 0 % (-); Platelet Count 220 10^3/uL (130-400); Red Blood Cell Count 3.38 10^6/uL (4.70-6.10); Red Cell Dist. Width 13.2 % (11.5-14.5); White Blood Cell Count 5.6 10^3/uL (4.8-10.8)
[2023-11-13 05:24] LABS: Blood Urea Nitrogen 16 mg/dl (9-20); Calcium 9.3 mg/dl (8.4-10.2); Carbon Dioxide 20 mmol/L (22-30); Chloride 105 mmol/L (98-107); Estimated Creatinine Clearance 50 ml/min; Glucose 102 mg/dl (70-99); Potassium 3.7 mmol/L (3.5-5.1); Sodium 137 mmol/L (135-145); eGFR > 60.00
[2023-11-13 07:38] VITALS: BP 132/70
--- NOTE | 2023-11-13 08:06 | W.PN.NEURO.1 ---
Addendum entered and electronically signed by Korey Longoria MD 11/13/23 13:54:
I saw and evaluated the patient I reviewed the note by Sherine Ga and agree with the findings the following comments:
88-year-old male with a past no history of hypertension hyperlipidemia diabetes most likely Alzheimer's dementia presented to hospital with generalized weakness walking difficulty falls and dizziness and found to have a large left-sided cerebellar
ischemic infarction. No acute events overnight. He has been being treated for aspiration pneumonia.
Neurologic examination largely unchanged compared to previous he has mild lethargy, awake and answers questions and is oriented to the hospital, obey simple commands
Cranial nerves shows dysarthria, no nystagmus seen resting gaze is midline extraocular's are full,
Generalized weakness on motor examination with no significant ataxia and spontaneous movements of the arms and legs
MRI brain with a large superior cerebellar artery territory infarct in the left side with no hemorrhage.
Assessment: Most likely large vessel disease atherosclerotic etiology of ischemic stroke which is significant in a patient with existing dementia. Overall prognosis I would say is guarded to poor given existing diagnosis of dementia, significant
dysphagia.
Recommendations
-I do feel that hospice would be reasonable given his chances for significant improvement with his advanced age and existing mild cognitive impairment/dementia would be minimal
-Continue rectal aspirin
-Goal normotension
-Minimize sedating medications
Original Note:
Documented by User: Sherine Ga NP 11/13/23 13:26
Today's Communication / Plan
-
.
Neuro Assessment/Plan
Assessment
This is a 88-year-old male with a PMH of dementia, HTN, HLD, NIDDM, and tremor who has presented to the hospital on 11/10/23 with report of generalized weakness, dizziness, two falls at home, and worsened confusion starting on 11/09/23. CT head was
obtained on arrival in the ER and demonstrates a left cerebellar subacute ischemic infarct. He was not a candidate for TNK/IAT due to being outside of the time window. He was loaded with DAPT in the ER. Patient has been hypertensive since arrival up
to 199/105. CXR is suggestive of a left mid to lower pneumonia.
-CT Head 11/10/23: Left cerebellar subacute infarct. No evidence of herniation. No acute intracranial hemorrhage. No skull fracture.
-Video Swallow 11/12/23: Airway aspiration noted with thin liquids, nectar consistency and honey consistency.
-TTE 11/11/23: EF 67%, mild concentric LVH, indeterminate diastolic function, mildly dilated left and right atria.
-MRI brain 11/12/23: There is a region of abnormal increased diffusion-weighted signal in the left cerebellar hemisphere, compatible with subacute infarction, corresponding to region on recent CT of the head. Centrally within this region of
infarction, there are smaller foci of decreased T2 gradient-echo signal and susceptibility blooming, compatible with blood products. This most likely represents petechial hemorrhage associated with the region of infarction. See above discussion. As
warranted, consideration could be given to a CT of the head determine if there is any macroscopic hemorrhage visible by CT. No evidence for obstructive hydrocephalus. 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
a pituitary macroadenoma. For further imaging evaluation, as warranted, thin section MRI imaging of the pituitary gland can be obtained pre and postcontrast.
I. Large subacute left cerebellar ischemic stroke with petechial hemorrhage.
II. TME in the setting of pneumonia.
III. Dysphagia.
IV. 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
Plan
-Patient is NPO, no meds. Provide rectal ASA daily until diet can be resumed or oral access is obtained, then resume DAPT with aspirin 81mg and Plavix 75mg daily for 21 days. After 21 days, discontinue Plavix and continue aspirin 81mg daily only,
indefinitely.
-Goal normotension (SBP<180) as symptom onset was greater than 24 hours ago.
-LDL goal <70. LDL is 52. Okay to continue home atorvastatin 10mg daily as LDL is at goal, resume this when cleared for oral intake.
-Goal normoglycemia, hbA1c is 5.9.
-NIHSS and neurological checks per unit guidelines.
-Provide patient with a stroke education packet.
-PT/OT/ST evaluations.
-DVT prophylaxis.
-Goals of care planning.
Subjective/Objective
Subjective Data
Date of Service: November 13, 2023
No acute events overnight. Patient reports having a headache earlier but it has resolved. He endorses coughing with oral intake. He denies any dizziness, vision changes, speech difficulty, numbness, focal weakness, chest pain, palpitations, and
shortness of breath.
Objective Data
Vital Signs
Temp Pulse Resp BP Pulse Ox
97.9 F 57 18 160/74 97
11/13/23 03:15 11/13/23 03:15 11/13/23 03:15 11/13/23 03:15 11/13/23 03:15
Lab Results
11/13/23 04:34
11/13/23 04:34
Sodium 137 mmol/L (135-145) 11/13/23 04:34
Potassium 3.7 mmol/L (3.5-5.1) 11/13/23 04:34
BUN 16 mg/dl (9-20) 11/13/23 04:34
Glucose 102 mg/dl (70-99) H 11/13/23 04:34
Calcium 9.3 mg/dl (8.4-10.2) 11/13/23 04:34
LDL Cholesterol, Calc 52 mg/dl 11/11/23 04:22
Vitamin B12 384 pg/ml (239-931) 11/11/23 04:22
Patient Allergies
No Known Allergies Allergy (Verified 11/10/19 17:44)
LDL Level: <70, continue statin
Review of Systems
-
History Source: Patient
EENT: Swallowing Difficulty; Negative Blurry Vision or Decreased Vision
Respiratory: Cough; Negative Trouble Breathing
Cardiac: Negative Chest Pain or Palpitations
Abdomen/GI: Negative Nausea
Neuro: Negative Dizzy, Headache, Weakness, Numbness, Ataxia, Tremors or Speech Problem
Physical Exam
-
General: No Apparent Distress
Eyes: No Ptosis and PERRLA
HEENT: Normocephalic and Atraumatic
Neck: Full Range of Motion
Respiratory: No Dyspnea
GI: Non-distended
Extremities: No Clubbing, No Cyanosis and No Edema
Psych: Unremarkable
Extended Neurological Exam
Mood & Affect: Mood Unremarkable and Affect Unremarkable
Attention Span & Concentration: Lethargic, Closes Eyes after Stimulation, Unable to Perform 2 Step Request and Unresponsive to Verbal Stimuli
Memory: Reduced (AAOx3 but poor historian)
Tremor: Hand Tremor Absent and Head Tremor Absent
Involuntary Movement: None
Speech: Rate of Production Unremarkable and Dysarthric
Cranial Nerve II: Left Eye: Pupillary Reactivity Unremarkable, Pupillary Size Unremarkable and Visual Barboza Intact
Cranial Nerve II: Right Eye: Pupillary Reactivity Unremarkable, Pupillary Size Unremarkable and Visual Barboza Intact
Cranial Nerves III, IV, : Extraocular Movement: Extraocular Movement Full in all Directions
Cranial Nerve V: Facial Sensation: Intact to Light Touch
Cranial Nerve VII: Facial Symmetry: Normal Facial Symmetry
Cranial Nerve VIII: Hearing: Grossly Reduced
Cranial Nerves IX, X: Palate Movement: Palate Elevation Symmetric
Cranial Nerve XI: Shoulder Shrug: Unremarkable
Cranial Nerve XII: Tongue Protusion: Midline
Muscle Strength, Overall: Reduced Throughout (DHILLON 4/5)
Muscle Bulk & Tone: Bulk Unremarkable and Tone Unremarkable
Pronator Drift: No Drift in Upper Extremities and No Drift in Lower Extremities
Touch Sensation: Double Simultaneous Stimulation Unremarkable
Coordination: Negative [id number] Testing Unremarkable (challenging to assess, dysmetria on the left at least)
Babinski Sign: Absent Bilaterally
Modified Zenda Score (MRS)
-
Modified Siddhartha Scale (mRS): Severe disability. Requires constant nursing care.
Score: 5
Data Reviewed
-
CT Head: Report Reviewed and Image Reviewed
MRI Head: Report Reviewed and Image Reviewed
Echocardiogram: Report Reviewed
Labs: Report Reviewed
Lipid Profile: Report Reviewed
HgbA1C: Report Reviewed
Reviewed with: Physician and Patient
Medications
-
Active Medications
Generic Name Dose Route Start Last Admin
Trade Name Freq PRN Reason Stop Dose Admin
Acetaminophen 650 mg 11/10/23 23:43
Acetaminophen 650 Mg Rectal Suppository RECTAL 12/08/23 23:42
Q4HPRN PRN
BARNES, mild pain, or temp >100.4F
Acetaminophen 650 mg 11/10/23 23:43
Acetaminophen 325 Mg Tablet PO 12/08/23 23:42
Q4HPRN PRN
BARNES, mild pain, or temp >100.4F
Aspirin 81 mg 11/11/23 08:00 11/12/23 14:58
Aspirin 81 Mg Chewable Tablet PO 12/09/23 07:59 Not Given
DAILY LATISHA
Aspirin 300 mg 11/12/23 11:00 11/13/23 09:27
Aspirin 300 Mg Rectal Suppository RECTAL 12/10/23 10:59 300 mg
DAILY LATISHA Administration
Atorvastatin Calcium 10 mg 11/11/23 22:00 11/12/23 21:13
Atorvastatin (Lipitor) 10 Mg Tablet PO 12/09/23 21:59 Not Given
HS LATISHA
Cholecalciferol 125 mcg 11/11/23 08:00 11/13/23 08:09
Cholecalciferol (Vitamin D3) 125 Mcg Tablet (5,000 Units) PO 12/09/23 07:59 Not Given
DAILY LATISHA
Clopidogrel Bisulfate 75 mg 11/11/23 08:00 11/12/23 14:58
Clopidogrel 75 Mg Tablet PO 12/09/23 07:59 Not Given
DAILY LATISHA
Donepezil HCl 10 mg 11/11/23 22:00 11/12/23 21:13
Donepezil Hcl 10 Mg Tablet PO 12/09/23 21:59 Not Given
HS LATISHA
Dorzolamide HCl 1 drop 11/11/23 08:00 11/13/23 09:24
Dorzolamide 2% (Ophthalmic Solution) 10 Ml Bottle BOTH EYES 12/09/23 07:59 1 drop
DAILY LATISHA Administration
Hydralazine HCl 10 mg 11/10/23 23:43 11/12/23 23:35
Hydralazine 20 Mg/Ml Vial IV 12/08/23 23:42 10 mg
Q6HPRN PRN Administration
hypertension
Ampicillin Sodium/Sulbactam 60 mls @ 120 mls/hr 11/11/23 16:00 11/13/23 09:24
Sodium 1.5 gm/ Sodium Chloride IV 60 mls
Q6H LATISHA Administration
Potassium Chloride/Dextrose/Sod Cl 20 meq in 1,000 mls @ 70 mls/hr 11/12/23 18:00 11/13/23 09:24
D5/0.45%Nss With Kcl 20 Meq IV 1,000 mls
[id number] LATISHA Administration
Losartan Potassium 50 mg 11/11/23 14:30 11/13/23 08:09
Losartan 50 Mg Tablet PO 12/09/23 14:29 Not Given
DAILY LATISHA
Pantoprazole Sodium 20 mg 11/11/23 15:00 11/13/23 08:09
Pantoprazole 20 Mg Delayed Release Tablet PO 12/09/23 14:59 Not Given
DAILY LATISHA
Sodium Chloride 0 flush 11/10/23 23:00 11/11/23 05:47
Sodium Chloride 0.9% (Flush) Syringe IV 12/08/23 22:59 1 flush
PER PROTOCOL LATISHA Administration
Tamsulosin HCl 0.4 mg 11/11/23 08:00 11/13/23 08:09
Tamsulosin 0.4 Mg Capsule PO 12/09/23 07:59 Not Given
DAILY LATISHA
Home Medications
�Medication �Instructions �Recorded
tamsulosin 0.4 mg capsule 0.4 mg PO DAILY Urinary Issue 07/02/18
atorvastatin 10 mg tablet 10 mg PO HS High Cholesterol 04/15/23
acetaminophen 325 mg tablet 325 mg PO Q6HPRN PRN mild pain 11/10/23
(Tylenol)
cholecalciferol (vitamin D3) 125 125 mcg PO DAILY Supplement 11/10/23
mcg (5,000 unit) tablet (Vitamin
D3)
donepezil 10 mg tablet 10 mg PO HS Neurological Condition 11/10/23
dorzolamide (PF) 2 % (PF) eye drops 1 drp BOTH EYES DAILY Eye Condition 11/10/23
losartan 100 mg tablet 50 mg PO DAILY Blood Pressure 11/10/23
pyridoxine (vitamin B6) 100 mg 100 mg PO HS Supplement 11/10/23
tablet
NIH Stroke Score
Subsequent NIH Scale
Date of Subsequent NIH Scale: 11/13/23
Time of Subsequent NIH Scale: 10:30
NIH Stroke Score
Level of Consciousness: 1 - Arousable
LOC Questions: 0-Answers both correctly
LOC Commands: 0-Performs both correctly
Best Horizontal Gaze: 0-Normal
Visual Barboza: 0=Normal, no visual loss
Facial Palsy: 0=Normal, symmetrical
Motor - Right Arm: 0=No drift 10 seconds
Motor - Left Arm: 0=No drift 10 seconds
Motor - Right Le-No drift 5 seconds
Motor - Left Le-No drift 5 seconds
Limb Ataxia: 1-Present in one limb
Sensation: 0-Normal
Best Language: 0-No aphasia
Dysarthria: 1-Mild slurring
Extinction and Inattention: 0-No abnormality
Total Score:: 3
Modified Siddhartha (mRS) Score
Modified Zenda Scale (mRS): Severe disability. Requires constant nursing care.
Score: 5
Alteplase Contraindication
Inclusion and Exclusion criteria reviewed: Yes
Reasons for NON-Tx with Thrombolytics ABSOLUTE Exclusions: Greater than 4.5 hrs from onset of sxs

Documented by User: Korey Longoria MD 11/13/23 13:52
Modified Siddhartha Score (MRS)
-
Score: 5
NIH Stroke Score
NIH Stroke Score
Total Score:: 3
Modified Siddhartha (mRS) Score
Score: 5
[2023-11-13] MEDS: VITAMIN D3 (cholecalciferol) PO (08:09)
[2023-11-13] MEDS: FLOMAX PO (08:09)
[2023-11-13] MEDS: COZAAR PO (08:09)
[2023-11-13] MEDS: PROTONIX PO (08:09)
[2023-11-13] MEDS: D5/0.45%NSS with KCL 20 MEQ 1000 IV (09:24)
[2023-11-13] MEDS: TRUSOPT 2% OPHTHALMIC SOLUTION 1 DROP BOTH EYES (09:24)
[2023-11-13] MEDS: ASPIRIN 300 MG RECTAL (09:27)
[2023-11-13 10:55] VITALS: BP 189/81
--- NOTE | 2023-11-13 12:08 | W.PN.HOSP.TC ---
Today's Communication/Plan
-
GOC discussions with family
CW current tx
Assessment / Plan
Assessment / Plan
Impression:
Acute left cerebellar CVA.
Toxic metabolic encephalopathy.
Acute left lower lobe aspiration pneumonia.
Dysphagia.
Conditions prior to admission:
Essential hypertension
Dyslipidemia
BPH.
Type 2 diabetes by history.
PAD.
Essential tremor.
Ambulatory dysfunction with frequent falls.
Plan:
Acute left ischemic cerebellar CVA.
Confirmed with MRI of the brain
Reported ataxia with physical therapy evaluation.
Rest of the neurologic exam with no focal findings other than patient being lethargic with muffled diminished speech. Vision field deficit on the right eye.
Neurology input appreciated
Ongoing workup:
Echocardiogram with preserved biventricular function and no cardioembolic source
Physical therapy assessment.
Indicated dual antiplatelet therapy for 21 days, although with inability to take p.o. transition to rectal aspirin
Goal normotension
Continue statin
Hemoglobin A1c 5.9
Toxic metabolic encephalopathy likely multifactorial in the settings of acute CVA as well as aspiration pneumonia
See below
TSH within normal limits
B12 within normal limits
Left lower lobe infiltrate secondary to aspiration pneumonia.
Stable respiratory status with no requirements of supplemental oxygen
Continue aspiration precautions
Speech and swallow evaluation including VSE confirming severe aspiration
N.p.o. except meds for now while goals of care discussion
IV fluids for maintenance
Narrow antibiotics from Zosyn to Unasyn to cover aspiration pathogens
Prior history of UTI. Urinalysis not consistent with infection.
Anemia likely chronic normocytic
Noted hemoglobin drop 11-9-10.5
Monitor closely while on DAPT.
Started PPI for prophylaxis
No iron def
Essential hypertension.
Continue losartan. Continue IV hydralazine monitor blood pressure with the goal of normotension
Type 2 diabetes by history.
Not on any glucose lowering medications prior to admission
Check hemoglobin A1c
BPH
Continue Flomax
Monitor for retention.
DW Neuro at bedside during rounds
CODE STATUS DNR
Dr Andrade spoke Goals of care discussion with patient son and daughter over the phone.
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
Family understand that artificial means of feeding including feeding tube either double or PEG tube would not improve quality of life or prolong survival. They will plan for additional gathering on 11/12 considering and leading towards hospice
evaluation.
I will follow with family
total time spent on today's encounter was 52 minutes which included time spent in counseling the patient/family regarding diagnosis and treatment plan as listed above, goals of care, and symptom management. Case was discussed with nursing staff,
specialists, and care coordinators/case management. All labs and imaging personally reviewed by me. Remainder the time spent in detailed review of previous records, lab data, imaging, and other medical provider documentation.
Anticipated Discharge: Within 24 hours
Subjective/Interval History
-
Date of Service: November 13, 2023
Sligthly lethargic
Oriented to place and person
Objective Data
-
Labs:
Laboratory Results
11/13/23
04:34
WBC 5.6
Hgb 10.5 L
Hct 29.7 L
Plt Count 220
Sodium 137
Potassium 3.7
Chloride 105
Carbon Dioxide 20 L
BUN 16
Creatinine 0.9
Glucose 102 H
Calcium 9.3
Vital Signs:
Vital Signs
Temp Pulse Resp BP Pulse Ox
98.6 F 49 20 189/81 100
11/13/23 10:55 11/13/23 10:55 11/13/23 10:55 11/13/23 10:55 11/13/23 10:55
I&O
11/12/23 11/13/23 11/14/23
06:59 06:59 06:59
Intake Total 1020 / 1020 840 / 840
Output Total 100 / 100
Balance 920 / 920 840 / 840
Review of Systems
-
Unable to obtain full review of systems at this time due to: Other (lethargy and congnitive issues)
Physical Exam
-
General: No Apparent Distress
Respiratory: Non Labored Respirations; Negative Accessory Resp Muscle Use
Cardiac: Regular Rhythm and S1/S2
GI: Soft
Neuro: Awake and Oriented (place and person); Negative Alert, No Motor Deficits or Tremors
Psych: Calm
Data Reviewed
-
Labs: Labs Reviewed by me
[2023-11-13 15:08] VITALS: BP 144/76
--- NOTE | 2023-11-13 15:50 | PTOTSP ---
Speech Language Pathology
Pt seen for dysphagia tx. Attempting to move legs out of bed upon arrival. Pt conversing with CONTROL SYSTEMS ENGINEER with confused conversation at times, but pt was pleasant and cooperative. Results/recommendations from VSE discussed. Pt stated 'not even juice?'
Wet coughing at baseline. Oral care completed with brushing of teeth with suctioning post. After oral care, provided 4 sips of water. Wet voice and coughing with 3/4 trials. Suspect aspiration. Pt then becoming drowsy, so further P.O. trials
deferred.
Pt appears more alert, but continues to have signs/symptoms of significant dysphagia/aspiration.
Recommend:
1. NPO - consider temporary non-oral means pending goals of care
2. Medications - non-oral
3. Oral care 4x daily
4. Aspiration Risk Hydration Protocol - sparing single sips of water ONLY if awake/alert, ONLY after oral care, ONLY with 1:1 assist. D/C if signs of respiratory compromise noted.
5. Dysphagia tx at the acute care level pending patient/family goals of care. Possible barriers include fluctuating SHAQUILLE and cognition.
[2023-11-13] MEDS: ARICEPT PO (19:42)
[2023-11-13] MEDS: LIPITOR PO (19:43)
[2023-11-13 23:26] VITALS: BP 177/84
[2023-11-14] MEDS: D5/0.45%NSS with KCL 20 MEQ 1000 IV ×2 (00:59→17:49)
[2023-11-14] MEDS: UNASYN IV ×4 (03:01→22:13)
[2023-11-14 06:31] LABS: Blood Urea Nitrogen 12 mg/dl (9-20); Calcium 9.2 mg/dl (8.4-10.2); Carbon Dioxide 26 mmol/L (22-30); Chloride 105 mmol/L (98-107); Estimated Creatinine Clearance 45 ml/min; Glucose 117 mg/dl (70-99); Potassium 3.8 mmol/L (3.5-5.1); Sodium 137 mmol/L (135-145); eGFR > 60.00
[2023-11-14 08:00] VITALS: BP 186/92
[2023-11-14 08:16] VITALS: BP 200/98
[2023-11-14] MEDS: COZAAR PO (09:00)
[2023-11-14] MEDS: FLOMAX PO (09:00)
[2023-11-14] MEDS: TRUSOPT 2% OPHTHALMIC SOLUTION 1 DROP BOTH EYES (09:01)
[2023-11-14] MEDS: PROTONIX PO (09:01)
[2023-11-14] MEDS: ASPIRIN 300 MG RECTAL (09:02)
[2023-11-14] MEDS: VITAMIN D3 (cholecalciferol) PO (09:02)
[2023-11-14] MEDS: APRESOLINE 5 MG IV (09:07)
--- NOTE | 2023-11-14 10:57 | CON.GI ---
Addendum entered and electronically signed by Diego Song MD 11/14/23 14:44:
I saw and examined the patient.
The DIGITAL MARKETING APPRENTICE or PA's note was reviewed and I agree with the note.
Comment: 88yo male admitted with CVA and aspiration PNA. Unable to tolerate PO intake, coughing, kept NPO at this time. Family agreeable to PEG. Plavix 300mg give on 11/09, then rectal ASA since then.
REC:
Placed DHT for feeds now
Plan PEG Friday
On abx for PNA already
Start TF once xray confirms DHT position
Original Note:
Consultation
-
Date/Time Consultation Requested: 11/14/23 0844
Date/Time Consultation Performed: 11/14/23 1030
Requesting Provider: Dr. Humphries
Performing Provider: Dr. Song/SAMY Schumacher
Reason for Consultation: dysphagia/PEG tube
Medical History
Chief Complaint / HPI
Chief Complaint: weakness, dizziness, fall
History of Present Illness:
88 y/o male with PMH of dementia, HTN, DM, HLD, preexisting dysphagia, tremor, BPH, mitral stenosis, anemia, constipation and ambulatory dysfunction presents to the ER on 11/10/23 after having falls at home, weakness and dizziness. Patient was found
to have large left-sided cerebellar ischemic infarction. The patient is also being treated for aspiration PNA. We are asked to evaluate for PEG tube. The patient was seen, he awakens but drifts off to sleep. He does speak and states that it is October
and he is in [facility]. His HOB is at 30 degrees however he does have obvious coughing of his own secretions. The patient denies any GI complaints. He defers to his family for any decisions after speaking to him about PEG tube, although he
did say 'okay'. The patient was given loading dose of Plavix 300 mg on 11/10/23. He has been on ASA (initally 325 orally) now ASA 300 mg rectal given NPO status.
Past Medical History
Past Medical History: HTN, Hypercholesterolemia, NIDDM and Other (BPH, dementia, PVD, constipation)
Past Surgical History: Other (hernia repair, bladder surgery)
Social History
Tobacco: Former Smoker
Alcohol: None
Living: With Family
Family History
Family History: Unable to Obtain
Allergies / Home Medications
Allergy/AdvReac Type Severity Reaction Status Date / Time
No Known Allergies Allergy Verified 11/10/19 17:44
�Medication �Instructions �Recorded
tamsulosin 0.4 mg capsule 0.4 mg PO DAILY Urinary Issue 07/02/18
atorvastatin 10 mg tablet 10 mg PO HS High Cholesterol 04/15/23
acetaminophen 325 mg tablet 325 mg PO Q6HPRN PRN mild pain 11/10/23
(Tylenol)
cholecalciferol (vitamin D3) 125 125 mcg PO DAILY Supplement 11/10/23
mcg (5,000 unit) tablet (Vitamin
D3)
donepezil 10 mg tablet 10 mg PO HS Neurological Condition 11/10/23
dorzolamide (PF) 2 % (PF) eye drops 1 drp BOTH EYES DAILY Eye Condition 11/10/23
losartan 100 mg tablet 50 mg PO DAILY Blood Pressure 11/10/23
pyridoxine (vitamin B6) 100 mg 100 mg PO HS Supplement 11/10/23
tablet
Review of Systems
-
Unable to obtain full review of systems at this time due to: Dementia and Other (current CVA)
Vital Signs
Temp Pulse Resp BP Pulse Ox
98.8 F 56 20 186/92 100
11/14/23 08:16 11/14/23 08:16 11/14/23 08:16 11/14/23 09:07 11/14/23 08:16
Physical Exam
Exam
General: No Apparent Distress
HEENT: Other (cough with secretions)
Respiratory: Clear (anterior)
Cardiac: Irregular Rhythm and Murmur
GI: Soft, Non Tender, Non Distended and Normal Bowel Sounds
Musculoskeletal: No Edema
Skin: Warm and Dry
Neuro: Awake (however drifts off to sleep easily, oriented to person and place. )
Psych: Calm
Results
WBC 5.6 10^3/uL (4.8-10.8) 11/13/23 04:34
Hgb 10.5 g/dL (13.0-18.0) L 11/13/23 04:34
Hct 29.7 % (39.0-52.0) L 11/13/23 04:34
MCV 87.9 fL (80.0-94.0) 11/13/23 04:34
Plt Count 220 10^3/uL (130-400) 11/13/23 04:34
Absolute Neuts (auto) 3.9 10^3/uL (1.4-6.5) 11/13/23 04:34
Sodium 137 mmol/L (135-145) 11/14/23 04:34
Potassium 3.8 mmol/L (3.5-5.1) 11/14/23 04:34
Chloride 105 mmol/L (98-107) 11/14/23 04:34
Carbon Dioxide 26 mmol/L (22-30) 11/14/23 04:34
BUN 12 mg/dl (9-20) 11/14/23 04:34
Creatinine 1.0 mg/dL (0.7-1.3) 11/14/23 04:34
Calcium 9.2 mg/dl (8.4-10.2) 11/14/23 04:34
Total Bilirubin 1.7 mg/dl (0.2-1.3) H 11/10/23 18:49
AST 38 U/L (17-59) 11/10/23 18:49
ALT 23 U/L (0-50) 11/10/23 18:49
Alkaline Phosphatase 56 U/L (38-126) 11/10/23 18:49
Diagnostic Image Results:
CXR 11/10/23:
Findings/impression:
Airspace opacity in the lateral left mid to lower lung zone, consistent with pneumonia. Possible subtle infiltrate in the right infrahilar region.
Electronically signed by Dano Jesus MD, 11/10/2023 10:58 PM
MRI Brain 11/12/23:
IMPRESSION: There is a region of abnormal increased diffusion-weighted signal in the left cerebellar hemisphere, compatible with subacute infarction, corresponding to region on recent CT of the head.
Centrally within this region of infarction, there are smaller foci of decreased T2 gradient-echo signal and susceptibility blooming, compatible with blood products. This most likely represents petechial hemorrhage associated with the region of
infarction. See above discussion. As warranted, consideration could be given to a CT of the head determine if there is any macroscopic hemorrhage visible by CT.
No evidence for obstructive hydrocephalus.
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 For further imaging evaluation, as warranted, thin section MRI imaging of the pituitary gland can be obtained pre and postcontrast.
Video Swallow 11/12/23:
Findings: The patient swallowing function was evaluated fluoroscopically and with videotape during the ingestion of several consistencies of barium, in conjunction with the speech pathologist. Brief imaging of the thoracic esophagus demonstrates no
significant esophageal retention.
Thin liquid barium by spoon: Penetration after the swallow on the first trial. Airway aspiration on the second trial
Thin liquid barium single sip by cup: Airway aspiration
Borup consistency barium by spoon with and without chin tuck: Airway aspiration
Honey consistency barium by spoon with and without right head turn: Airway aspiration
Barium pudding by spoon: No penetration or aspiration
Impression: Airway aspiration noted with thin liquids, nectar consistency and honey consistency. Detailed findings as described above.
Please refer to speech therapy report for further evaluation and management considerations.
Reilly Cano MD has reviewed and agrees with assessment by Collette Rudolph PA-C.
Collette Rudolph PA-C has performed this procedure under direct supervision by Reilly Cano MD.
Electronically signed by Reilly Cano MD, 11/12/2023 9:17 AM
Prior GI Procedures:
EGD: unknown
Colonoscopy: unknown
Assessment / Plan
-
88 y/o male with PMH of dementia, HTN, DM, HLD, preexisting dysphagia, tremor, BPH, mitral stenosis, anemia, constipation and ambulatory dysfunction presents to the ER on 11/10/23 after having falls at home, weakness and dizziness. Patient was found
to have large left-sided cerebellar ischemic infarction. The patient is also being treated for aspiration PNA. We are asked to evaluate for PEG tube. Patient's daughter Pam Pinedo [phone] (is his Medical POA) and his son Micheal Pinedo (is
his Financial POA) [phone]. I did speak to both of them and they are both in agreement and spoke with their father and wish to procede with PEG tube. They understand that this is only a means to support nutrition/hydration and medication. That
is does not prevent aspiration or improve it. Discussion of risks including bleeding, perforation, infection, medication reaction, inability to place tube or if tube is dislodged prior to tract maturation possible peritonitis. Discussed with
daughter that DNR would need to be reversed at time of PEG tube placement. She had planned to discuss with IM Attending to reverse anyway. I did send [place] text to Dr. Humphries to make him aware as well.
Impression:
Oropharyngeal dysphagia
Aspiration PNA
Acute left cerebellar CVA
Plan:
-Plan for PEG tube placement, likely Friday.
-Continue Tx for PNA
-Okay for rectal ASA
-On IVF currently
-Further recommendations to be forthcoming.
Data Reviewed
-
Radiology: Report Reviewed by me
MRI: Report Reviewed by me
-
-
Thank you for consultation and allowing me to participate in the patient's care. Please call the electrophysiology nurse practitioner GI physician during the after hours with any questions or concerns.
--- NOTE | 2023-11-14 11:10 | W.PN.HOSP.TC ---
Today's Communication/Plan
-
Consult GI for PEG
CW IV fluids
CW supportive care
Assessment / Plan
Assessment / Plan
Impression:
Acute left cerebellar CVA.
Toxic metabolic encephalopathy.
Acute left lower lobe aspiration pneumonia.
Dysphagia.
Conditions prior to admission:
Essential hypertension
Dyslipidemia
BPH.
Type 2 diabetes by history.
PAD.
Essential tremor.
Ambulatory dysfunction with frequent falls.
Plan:
Acute left ischemic cerebellar CVA.
Confirmed with MRI of the brain
Reported ataxia with physical therapy evaluation.
Rest of the neurologic exam with no focal findings other than patient being lethargic with muffled diminished speech. Vision field deficit on the right eye.
Neurology input appreciated
workup:
Echocardiogram with preserved biventricular function and no cardioembolic source
Physical therapy assessment -rehab.
Indicated dual antiplatelet therapy for 21 days, although with inability to take p.o. transition to rectal aspirin
Goal normotension
Continue statin
Hemoglobin A1c 5.9
Toxic metabolic encephalopathy likely multifactorial in the settings of acute CVA as well as aspiration pneumonia
See below
TSH within normal limits
B12 within normal limits
Left lower lobe infiltrate secondary to aspiration pneumonia.
Stable respiratory status with no requirements of supplemental oxygen
Continue aspiration precautions
Speech and swallow evaluation including VSE confirming severe aspiration
N.p.o. except meds for now while goals of care discussion
IV fluids for maintenance
Narrow antibiotics from Zosyn to Unasyn to cover aspiration pathogens
Prior history of UTI. Urinalysis not consistent with infection.
Anemia likely chronic normocytic
Noted hemoglobin drop 11-9-10.5
Monitor closely while on DAPT.
Started PPI for prophylaxis
No iron def
Essential hypertension.
Continue losartan. Continue IV hydralazine monitor blood pressure with the goal of normotension
Type 2 diabetes by history.
Not on any glucose lowering medications prior to admission
Check hemoglobin A1c
BPH
Continue Flomax
Monitor for retention.
DW Neuro at bedside during rounds
CODE STATUS DNR
DW daughter Pam on phone yesterday and son Micheal on phone this am - they understood stroke and dysphagia issues. They like to consider feeding tube if feasible and risk not high and give him a chance at rehab.
Consulted GI.
Total clinical care 50 min
Anticipated Discharge: 24 - 48 hours
Subjective/Interval History
-
Date of Service: November 14, 2023
Was sleepy when i visited him but easily arousable.
Oriented to person and place.
He could list all the names of his kids today.
When told him about the stroke ,dysphagia, and the need of feeding tube for nutrition, he said' If it has to be done ,do it'
Objective Data
-
Labs:
Laboratory Results
11/14/23
04:34
Sodium 137
Potassium 3.8
Chloride 105
Carbon Dioxide 26
BUN 12
Creatinine 1.0
Glucose 117 H
Calcium 9.2
Vital Signs:
Vital Signs
Temp Pulse Resp BP Pulse Ox
98.8 F 56 20 186/92 100
11/14/23 08:16 11/14/23 08:16 11/14/23 08:16 11/14/23 09:07 11/14/23 08:16
I&O
11/13/23 11/14/23 11/15/23
06:59 06:59 06:59
Intake Total 840 / 840
Balance 840 / 840
Review of Systems
-
Unable to obtain full review of systems at this time due to: Other (slighly lethargic but conversive )
Respiratory: Denies Trouble Breathing
Cardiac: Denies Chest Pain
Abdomen/GI: Denies Nausea or Vomiting
Neuro: Denies Headache
Physical Exam
-
General: No Apparent Distress
Respiratory: Non Labored Respirations and Other (audible cough , able to clear his throat); Negative Accessory Resp Muscle Use
Cardiac: Regular Rhythm and S1/S2
GI: Soft
Neuro: Awake; Negative Alert, No Motor Deficits, Tremors or Other (no nystagmus)
Psych: Calm
Data Reviewed
-
Labs: Labs Reviewed by me
--- NOTE | 2023-11-14 12:15 | CM ---
PT OT recommended acute rehab.
spoke with family Pam nelson who agreed she wanted [facility] for a acute rehab .
[facility] referral in care port.[facility] reviewed chart.
Pt will need feeing source.
GI involved for Peg tube placement.
PMR cx requested form MD for [facility].
Will need auth
PLAN Possible acute rehab will need auth and Peg placed.
[2023-11-14 12:55] VITALS: BP 133/71; BP 153/87; PULSE 70; O2SAT 100
[2023-11-14] MEDS: FLUSH (NSS) 2 FLUSH IV (15:47)
[2023-11-14 16:01] VITALS: BP 146/91
[2023-11-14] MEDS: ARICEPT 10 MG TUBE (22:13)
[2023-11-14] MEDS: LIPITOR 10 MG TUBE (22:13)
[2023-11-14 23:06] VITALS: BP 153/100
[2023-11-15] MEDS: UNASYN IV ×4 (03:23→21:48)
[2023-11-15] MEDS: D5/0.45%NSS with KCL 20 MEQ 1000 IV ×2 (05:53→21:47)
[2023-11-15] MEDS: APRESOLINE 5 MG IV (05:55)
[2023-11-15 07:19] VITALS: BP 125/80
--- NOTE | 2023-11-15 09:14 | W.PN.HOSP.TC ---
Today's Communication/Plan
-
adjust tube feeds
PEG Friday
Assessment / Plan
Assessment / Plan
Impression:
Acute left cerebellar CVA.
Toxic metabolic encephalopathy.
Acute left lower lobe aspiration pneumonia.
Dysphagia.
Conditions prior to admission:
Essential hypertension
Dyslipidemia
BPH.
Type 2 diabetes by history.
PAD.
Essential tremor.
Ambulatory dysfunction with frequent falls.
Plan:
11/15/23--Dobhoff in--PEG Friday, holding plavix--advance tube feeds to goal as able--NPO after MN Friday--now FULL CODE with plans for acute rehab?--await Dr. Jenkins Why input
Acute left ischemic cerebellar CVA.
Confirmed with MRI of the brain
Reported ataxia with physical therapy evaluation.
Rest of the neurologic exam with no focal findings other than patient being lethargic with muffled diminished speech. Vision field deficit on the right eye.
Neurology input appreciated
workup:
Echocardiogram with preserved biventricular function and no cardioembolic source
Physical therapy assessment -rehab.
Indicated dual antiplatelet therapy for 21 days, although with inability to take p.o. transition to rectal aspirin
Goal normotension
Continue statin
Hemoglobin A1c 5.9
Toxic metabolic encephalopathy likely multifactorial in the settings of acute CVA as well as aspiration pneumonia
See below
TSH within normal limits
B12 within normal limits
Left lower lobe infiltrate secondary to aspiration pneumonia.
Stable respiratory status with no requirements of supplemental oxygen
Continue aspiration precautions
Speech and swallow evaluation including VSE confirming severe aspiration
N.p.o. except meds for now while goals of care discussion
IV fluids for maintenance
Narrow antibiotics from Zosyn to Unasyn to cover aspiration pathogens
Prior history of UTI. Urinalysis not consistent with infection.
Anemia likely chronic normocytic
Noted hemoglobin drop 11-9-10.5
Monitor closely while on DAPT.
Started PPI for prophylaxis
No iron def
Essential hypertension.
Continue losartan. Continue IV hydralazine monitor blood pressure with the goal of normotension
Type 2 diabetes by history.
Not on any glucose lowering medications prior to admission
Check hemoglobin A1c
BPH
Continue Flomax
Monitor for retention.
DW Neuro at bedside during rounds
CODE STATUS DNR
DW daughter Pam on phone yesterday and son Micheal on phone this am - they understood stroke and dysphagia issues. They like to consider feeding tube if feasible and risk not high and give him a chance at rehab.
Consulted GI.
Anticipated Discharge: > 48 hours
Subjective/Interval History
-
Date of Service: November 15, 2023
pt denies c/o
Objective Data
-
Vital Signs:
max temp for 24 hours
11/15/23
07:19
Temp 99.5 F
Vital Signs
Temp Pulse Resp BP Pulse Ox
99.5 F 70 20 125/80 99
11/15/23 07:19 11/15/23 07:19 11/15/23 07:19 11/15/23 07:19 11/15/23 07:19
I&O
11/14/23 11/15/23 11/16/23
06:59 06:59 06:59
Intake Total 820 / 820
Output Total 200 / 200
Balance 620 / 620
Review of Systems
-
Unable to obtain full review of systems at this time due to: Dementia (denies any c/o)
Physical Exam
-
General: Appears Chronically Ill
HEENT: Normocephalic, Atraumatic and Other (small bore feeding tube in nose)
Respiratory: Clear to Auscultation; Negative Wheezes or Rhonchi
Cardiac: Regular Rhythm and S1/S2; Negative Murmur
GI: Soft, Nontender, Nondistended and Normal Bowel Sounds
Musculoskeletal: No Clubbing, No Cyanosis and No Edema
Neuro: Awake
Psych: Calm
--- NOTE | 2023-11-15 09:40 | W.PN.GI.CBS2 ---
Today's Communication / Plan
-
Increased TF to 30cc/hr
OK for Nutrition to adjust to goal rate
Plan PEG Friday
Hold plavix, ok to cont asa
On zosyn
Assessment / Plan
-
88 y/o male with PMH of dementia, HTN, DM, HLD, preexisting dysphagia, tremor, BPH, mitral stenosis, anemia, constipation and ambulatory dysfunction presents to the ER on 11/10/23 after having falls at home, weakness and dizziness. Patient was found
to have large left-sided cerebellar ischemic infarction. The patient is also being treated for aspiration PNA. We are asked to evaluate for PEG tube. Patient's daughter Pam Pinedo [phone] (is his Medical POA) and his son Micheal Pinedo (is
his Financial POA) [phone]. I did speak to both of them and they are both in agreement and spoke with their father and wish to procede with PEG tube. They understand that this is only a means to support nutrition/hydration and medication. That
is does not prevent aspiration or improve it. Discussion of risks including bleeding, perforation, infection, medication reaction, inability to place tube or if tube is dislodged prior to tract maturation possible peritonitis. Discussed with
daughter that DNR would need to be reversed at time of PEG tube placement. She had planned to discuss with IM Attending to reverse anyway. I did send [place] text to Dr. Humphries to make him aware as well.
Impression:
Oropharyngeal dysphagia
Aspiration PNA
Acute left cerebellar CVA
Subjective
Subjective
Date of Service: November 15, 2023
No complaints
Objective
Data Reviewed
Laboratory Data:
Laboratory Results
11/13/23 04:34
11/14/23 04:34
Laboratory Results
Total Bilirubin 1.7 mg/dl (0.2-1.3) H 11/10/23 18:49
AST 38 U/L (17-59) 11/10/23 18:49
ALT 23 U/L (0-50) 11/10/23 18:49
Alkaline Phosphatase 56 U/L (38-126) 11/10/23 18:49
Vital Signs and I&O:
Vital Signs
Temp Pulse Resp BP Pulse Ox
99.5 F 70 20 125/80 99
11/15/23 07:19 11/15/23 07:19 11/15/23 07:19 11/15/23 07:19 11/15/23 07:19
I&O
11/14/23 11/15/23 11/16/23
06:59 06:59 06:59
Intake Total 820 / 820
Output Total 200 / 200
Balance 620 / 620
Physical Exam
Physical Exam
GI: Soft, Non Distended and Non Tender
[2023-11-15] MEDS: COZAAR 50 MG TUBE (10:39)
[2023-11-15] MEDS: VITAMIN D3 (cholecalciferol) 125 MCG TUBE (10:39)
[2023-11-15] MEDS: PROTONIX IV 20 MG IV (10:40)
[2023-11-15] MEDS: NSS (PRESERVATIVE FREE) 10 ML IV (10:40)
[2023-11-15] MEDS: LOW STRENGTH ASPIRIN 81 MG TUBE (10:40)
[2023-11-15] MEDS: TRUSOPT 2% OPHTHALMIC SOLUTION 1 DROP BOTH EYES (10:43)
[2023-11-15] MEDS: FLUSH (NSS) 2 FLUSH IV (10:44)
[2023-11-15] MEDS: FLOMAX TUBE (10:46)
[2023-11-15 14:52] VITALS: BP 113/63
[2023-11-15 15:15] VITALS: BP 114/73
[2023-11-15] MEDS: FLUSH (NSS) 1 FLUSH IV (16:13)
[2023-11-15] MEDS: LIPITOR 10 MG TUBE (21:47)
[2023-11-15] MEDS: ARICEPT 10 MG TUBE (21:48)
[2023-11-15 23:40] VITALS: BP 90/59
[2023-11-16] MEDS: UNASYN IV ×4 (03:02→21:06)
[2023-11-16] MEDS: D5/0.45%NSS with KCL 20 MEQ IV (05:31)
[2023-11-16 07:55] VITALS: BP 166/78
[2023-11-16] MEDS: TRUSOPT 2% OPHTHALMIC SOLUTION 1 DROP BOTH EYES (08:20)
[2023-11-16] MEDS: FLOMAX 0.4 MG TUBE (08:24)
[2023-11-16] MEDS: LOW STRENGTH ASPIRIN 81 MG TUBE (08:24)
[2023-11-16] MEDS: VITAMIN D3 (cholecalciferol) 125 MCG TUBE (08:25)
[2023-11-16] MEDS: COZAAR 50 MG TUBE (08:25)
[2023-11-16] MEDS: NSS (PRESERVATIVE FREE) 10 ML IV (08:26)
[2023-11-16] MEDS: PROTONIX IV 20 MG IV (08:26)
[2023-11-16 08:31] LABS: Hematocrit 31.9 % (39.0-52.0); Hemoglobin 10.9 g/dL (13.0-18.0); Mean Corp Hgb Conc. 34.2 g/dL (33.0-37.0); Mean Corpuscular Hgb 30.8 pg (27.0-31.0); Mean Corpuscular Volume 90.1 fL (80.0-94.0); Mean Platelet Volume 11.2 fL (7.4-10.4); Platelet Count 237 10^3/uL (130-400); Red Blood Cell Count 3.54 10^6/uL (4.70-6.10); Red Cell Dist. Width 13.2 % (11.5-14.5); White Blood Cell Count 6.5 10^3/uL (4.8-10.8)
[2023-11-16 08:45] LABS: Blood Urea Nitrogen 10 mg/dl (9-20); Calcium 9.6 mg/dl (8.4-10.2); Carbon Dioxide 27 mmol/L (22-30); Chloride 102 mmol/L (98-107); Estimated Creatinine Clearance 45 ml/min; Glucose 153 mg/dl (70-99); Potassium 3.8 mmol/L (3.5-5.1); Sodium 135 mmol/L (135-145); eGFR > 60.00
--- NOTE | 2023-11-16 09:03 | W.PN.HOSP.TC ---
Today's Communication/Plan
-
NPO post MN
PEG in AM
Assessment / Plan
Assessment / Plan
Impression:
Acute left cerebellar CVA.
Toxic metabolic encephalopathy.
Acute left lower lobe aspiration pneumonia.
Dysphagia.
Conditions prior to admission:
Essential hypertension
Dyslipidemia
BPH.
Type 2 diabetes by history.
PAD.
Essential tremor.
Ambulatory dysfunction with frequent falls.
Plan:
11/16/23 -- nothing new--tube feeds advanced toward goal--PEG in AM
11/15/23--Dobhoff in--PEG Friday, holding plavix--advance tube feeds to goal as able--NPO after MN Friday--now FULL CODE with plans for acute rehab?--await Dr. Jenkins Why input
Acute left ischemic cerebellar CVA.
Confirmed with MRI of the brain
Reported ataxia with physical therapy evaluation.
Rest of the neurologic exam with no focal findings other than patient being lethargic with muffled diminished speech. Vision field deficit on the right eye.
Neurology input appreciated
workup:
Echocardiogram with preserved biventricular function and no cardioembolic source
Physical therapy assessment -rehab.
Indicated dual antiplatelet therapy for 21 days, although with inability to take p.o. transition to rectal aspirin
Goal normotension
Continue statin
Hemoglobin A1c 5.9
Toxic metabolic encephalopathy likely multifactorial in the settings of acute CVA as well as aspiration pneumonia
See below
TSH within normal limits
B12 within normal limits
Left lower lobe infiltrate secondary to aspiration pneumonia.
Stable respiratory status with no requirements of supplemental oxygen
Continue aspiration precautions
Speech and swallow evaluation including VSE confirming severe aspiration
N.p.o. except meds for now while goals of care discussion
IV fluids for maintenance
Narrow antibiotics from Zosyn to Unasyn to cover aspiration pathogens
Prior history of UTI. Urinalysis not consistent with infection.
Anemia likely chronic normocytic
Noted hemoglobin drop 11-9-10.5
Monitor closely while on DAPT.
Started PPI for prophylaxis
No iron def
Essential hypertension.
Continue losartan. Continue IV hydralazine monitor blood pressure with the goal of normotension
Type 2 diabetes by history.
Not on any glucose lowering medications prior to admission
Check hemoglobin A1c
BPH
Continue Flomax
Monitor for retention.
DW Neuro at bedside during rounds
CODE STATUS DNR
DW daughter Pam on phone yesterday and son Micheal on phone this am - they understood stroke and dysphagia issues. They like to consider feeding tube if feasible and risk not high and give him a chance at rehab.
Consulted GI.
Anticipated Discharge: > 48 hours
Subjective/Interval History
-
Date of Service: November 16, 2023
pt waiting for PEG tube
Objective Data
-
Labs:
Laboratory Results
11/16/23
08:06
WBC 6.5
Hgb 10.9 L
Hct 31.9 L
Plt Count 237
Sodium 135
Potassium 3.8
Chloride 102
Carbon Dioxide 27
BUN 10
Creatinine 1.0
Glucose 153 H
Calcium 9.6
Vital Signs:
max temp for 24 hours
11/15/23
23:40
Temp 99.2 F
Vital Signs
Temp Pulse Resp BP Pulse Ox
98.8 F 60 12 166/70 98
11/16/23 07:55 11/16/23 08:25 11/16/23 07:55 11/16/23 08:25 11/16/23 07:55
I&O
11/15/23 11/16/23 11/17/23
06:59 06:59 06:59
Intake Total 820 / 820 1160 / 1160
Output Total 200 / 200
Balance 620 / 620 1160 / 1160
Review of Systems
-
All other systems: Reviewed and negative
Physical Exam
-
General: No Apparent Distress and Appears Chronically Ill
HEENT: Other (small bore feeding tube )
Respiratory: Clear to Auscultation; Negative Wheezes or Rhonchi
Cardiac: Regular Rhythm and S1/S2; Negative Murmur
GI: Soft, Nontender, Nondistended and Normal Bowel Sounds
Musculoskeletal: No Clubbing, No Cyanosis and No Edema
Neuro: Awake and Alert
[2023-11-16 10:44] VITALS: BP 158/66; PULSE 66; O2SAT 99
[2023-11-16] MEDS: D5/0.45%NSS with KCL 20 MEQ 1000 IV (12:07)
--- NOTE | 2023-11-16 13:30 | PTCARENOTE ---
Patient has pulled out his dobhoff. MD is aware. patined denies any pain, no distress noted.
--- NOTE | 2023-11-16 13:44 | W.PN.GI.CBS2 ---
Today's Communication / Plan
-
Will plan on PEG tomorrow
Leave DHT out at this point
On Unasyn so no need for other abx for PEG prophylaxis
Assessment / Plan
-
88 y/o male with PMH of dementia, HTN, DM, HLD, preexisting dysphagia, tremor, BPH, mitral stenosis, anemia, constipation and ambulatory dysfunction presents to the ER on 11/10/23 after having falls at home, weakness and dizziness. Patient was found
to have large left-sided cerebellar ischemic infarction. The patient is also being treated for aspiration PNA. We are asked to evaluate for PEG tube. Patient's daughter Pam Pinedo [phone] (is his Medical POA) and his son Micheal Pinedo (is
his Financial POA) [phone]. I did speak to both of them and they are both in agreement and spoke with their father and wish to procede with PEG tube. They understand that this is only a means to support nutrition/hydration and medication. That
is does not prevent aspiration or improve it. Discussion of risks including bleeding, perforation, infection, medication reaction, inability to place tube or if tube is dislodged prior to tract maturation possible peritonitis. Discussed with
daughter that DNR would need to be reversed at time of PEG tube placement. She had planned to discuss with IM Attending to reverse anyway. I did send [place] text to Dr. Humphries to make him aware as well.
Impression:
Oropharyngeal dysphagia
Aspiration PNA
Acute left cerebellar CVA
Subjective
Subjective
Date of Service: November 16, 2023
Pt pulled out DHT
Objective
Data Reviewed
Laboratory Data:
Laboratory Results
11/16/23 08:06
11/16/23 08:06
Laboratory Results
Total Bilirubin 1.7 mg/dl (0.2-1.3) H 11/10/23 18:49
AST 38 U/L (17-59) 11/10/23 18:49
ALT 23 U/L (0-50) 11/10/23 18:49
Alkaline Phosphatase 56 U/L (38-126) 11/10/23 18:49
Vital Signs and I&O:
Vital Signs
Temp Pulse Resp BP Pulse Ox
98.8 F 60 12 166/70 98
11/16/23 07:55 11/16/23 08:25 11/16/23 07:55 11/16/23 08:25 11/16/23 07:55
I&O
11/15/23 11/16/23 11/17/23
06:59 06:59 06:59
Intake Total 820 / 820 1160 / 1160
Output Total 200 / 200
Balance 620 / 620 1160 / 1160
Physical Exam
Physical Exam
GI: Soft, Non Distended and Non Tender
[2023-11-16 15:00] VITALS: BP 148/90
[2023-11-16] MEDS: ARICEPT TUBE (20:43)
[2023-11-16] MEDS: LIPITOR TUBE (20:43)
[2023-11-16 23:59] VITALS: BP 160/75
[2023-11-17] VITALS (14 sets, daily range): BP systolic 18–190; BP diastolic 65–97; PULSE 58; O2SAT 100
[2023-11-17] MEDS: D5/0.45%NSS with KCL 20 MEQ 1000 IV (00:59)
[2023-11-17] MEDS: UNASYN IV ×4 (03:41→21:02)
[2023-11-17] MEDS: APRESOLINE 5 MG IV ×2 (04:15→21:16)
[2023-11-17 05:14] LABS: Hematocrit 28.6 % (39.0-52.0); Mean Corpuscular Hgb 31.3 pg (27.0-31.0); Mean Corpuscular Volume 89.4 fL (80.0-94.0); Mean Platelet Volume 11.2 fL (7.4-10.4); Platelet Count 203 10^3/uL (130-400); Red Cell Dist. Width 13.2 % (11.5-14.5); White Blood Cell Count 5.6 10^3/uL (4.8-10.8)
[2023-11-17 05:19] LABS: INR 1.25; PT 15.5 Sec (11.4-14.6)
[2023-11-17 05:30] LABS: Blood Urea Nitrogen 10 mg/dl (9-20); Calcium 9.2 mg/dl (8.4-10.2); Carbon Dioxide 26 mmol/L (22-30); Chloride 104 mmol/L (98-107); Estimated Creatinine Clearance 50 ml/min; Glucose 93 mg/dl (70-99); Potassium 4.1 mmol/L (3.5-5.1); Sodium 135 mmol/L (135-145); eGFR > 60.00
[2023-11-17] MEDS: FLOMAX TUBE (08:54)
[2023-11-17] MEDS: COZAAR TUBE (08:54)
[2023-11-17] MEDS: VITAMIN D3 (cholecalciferol) TUBE (08:54)
[2023-11-17] MEDS: LOW STRENGTH ASPIRIN TUBE (08:54)
--- NOTE | 2023-11-17 10:00 | OR.RPT ---
Operative Report
Operative Report
Patient Name: Renata Pinedo
: 1935
Date of Operation: 11/17/2023
Preoperative Diagnosis: Need for feeding access
Postoperative Diagnosis: Same
Procedure(s):
Percutaneous endoscopic gastrostomy (pull technique)
Surgeon(s):
Dr. Virgen
Endoscopist(s):
Dr. Song
Anesthesia: General
Estimated Blood Loss: 1 cc
Urine Output: None
Drains/Lines/Implants: 20 [place] PEG tube
Specimens: None
Indication/Findings at the time of surgery:
Please see GI notes. The patient did not have any abdominal CT imaging in our system, but a plain film was reviewed prior to the procedure.
Details of the operation:
After inducing general anesthesia and placement of a mouth guard, an upper endoscopy was performed by the scrap shear operator (see their note for further details) an appropriate site for the PEG tube was identified near the left costal margin. This
was confirmed by good one-to-one, transillumination as well as a safe track technique. The overlying skin was infiltrated with lidocaine and a small stab incision was made. The introducer needle was inserted through the stab incision, abdominal
wall and into the stomach. This required 2 passes. The blue guidewire was inserted through the sheath and was captured by an endoscopic snare. A 20 [place]ian PEG tube was then advanced along the tract. The external bumper and tube feeding attachment
were placed. The tube was noted to be 3.5 cm at the skin. There was minimal blood loss. The patient returned to the recovery room in stable condition. Sponge and instrument counts were correct. No specimen sent to pathology from our portion of
the procedure.
I was the attending physician and performed the procedure with no assistance. I was present for all portions of the case
Abhishek Virgen MD
[2023-11-17 10:20] LABS: Glucose - Point of Care 146 mg/dl (70-99)
[2023-11-17] MEDS: NSS (PRESERVATIVE FREE) 10 ML IV (11:20)
[2023-11-17] MEDS: TRUSOPT 2% OPHTHALMIC SOLUTION 1 DROP BOTH EYES (11:20)
[2023-11-17] MEDS: PROTONIX IV 20 MG IV (11:20)
[2023-11-17] MEDS: D5/0.45%NSS with KCL 20 MEQ IV (11:31)
[2023-11-17] MEDS: LR 1000 IV (12:00)
--- NOTE | 2023-11-17 15:18 | W.PN.HOSP.TC ---
Today's Communication/Plan
-
PEG tube placement
Continue IV fluids for maintenance.
Follow electrolytes
Continue IV antibiotics
Continue aspiration precautions
Assessment / Plan
Assessment / Plan
Impression:
Acute left cerebellar CVA.
Toxic metabolic encephalopathy.
Acute left lower lobe aspiration pneumonia.
Dysphagia.
Conditions prior to admission:
Essential hypertension
Dyslipidemia
BPH.
Type 2 diabetes by history.
PAD.
Essential tremor.
Ambulatory dysfunction with frequent falls.
Plan:
Acute left ischemic cerebellar CVA.
Confirmed with MRI of the brain
Reported ataxia with physical therapy evaluation.
Rest of the neurologic exam with no focal findings other than patient being lethargic with muffled diminished speech. Vision field deficit on the right eye.
Neurology input appreciated
workup:
Echocardiogram with preserved biventricular function and no cardioembolic source
Physical therapy assessment -rehab.
Indicated dual antiplatelet therapy for 21 days, although with inability to take p.o. transition to rectal aspirin
Goal normotension
Continue statin
Hemoglobin A1c 5.9
Toxic metabolic encephalopathy likely multifactorial in the settings of acute CVA as well as aspiration pneumonia
See below
TSH within normal limits
B12 within normal limits
Left lower lobe infiltrate secondary to aspiration pneumonia.
Stable respiratory status with no requirements of supplemental oxygen
Continue aspiration precautions
Speech and swallow evaluation including VSE confirming severe aspiration
N.p.o. except meds for now while goals of care discussion
IV fluids for maintenance
Narrow antibiotics from Zosyn to Unasyn to cover aspiration pathogens. Plan is to complete 10-day course of antibiotics through 11/20.
Dysphagia. Patient and family opted for PEG tube placement.
Status post PEG tube placement on 11/16.
Hopefully to start tube feeding slowly on 11/17.
Anemia likely chronic normocytic
Noted hemoglobin drop 11-9-10.5
Monitor closely while on DAPT.
Started PPI for prophylaxis
No iron def
Essential hypertension.
Continue losartan. Continue IV hydralazine monitor blood pressure with the goal of normotension
Type 2 diabetes by history.
Not on any glucose lowering medications prior to admission
Check hemoglobin A1c
BPH
Continue Flomax
Monitor for retention.
DW Neuro at bedside during rounds
CODE STATUS DNR
Anticipated Discharge: 24 - 48 hours
Subjective/Interval History
-
Date of Service: November 17, 2023
Objective Data
-
Labs:
Laboratory Results
11/17/23
04:36
WBC 5.6
Hgb 10.0 L
Hct 28.6 L
Plt Count 203
PT 15.5 H
INR 1.25
Sodium 135
Potassium 4.1
Chloride 104
Carbon Dioxide 26
BUN 10
Creatinine 0.9
Glucose 93
Calcium 9.2
Vital Signs:
Vital Signs
Temp Pulse Resp BP Pulse Ox
98.2 F 64 20 134/80 100
11/17/23 15:10 11/17/23 15:10 11/17/23 15:10 11/17/23 15:10 11/17/23 15:10
I&O
11/16/23 11/17/23 11/18/23
06:59 06:59 06:59
Intake Total 1160 / 1160
Balance 1160 / 1160
Physical Exam
-
General: Well Developed and No Apparent Distress
HEENT: Normocephalic, Atraumatic and Moist Mucous Membranes
Respiratory: Clear to Auscultation
Cardiac: Regular Rhythm and S1/S2; Negative Murmur, Rub or Gallop
GI: Soft, Nontender, Nondistended and Normal Bowel Sounds; Negative Organomegaly
Rectal: Deferred by Provider
Musculoskeletal: No Clubbing, No Cyanosis and No Edema
Skin: Negative Rash
Neuro: Nonfocal/Grossly Intact
[2023-11-17] MEDS: NSS 1000 IV (15:50)
[2023-11-17] MEDS: TYLENOL 650 MG TUBE (15:51)
[2023-11-17] MEDS: LIPITOR 10 MG TUBE (20:54)
[2023-11-17] MEDS: ARICEPT 10 MG TUBE (20:54)
[2023-11-18] VITALS (7 sets, daily range): BP systolic 141–164; BP diastolic 71–91; PULSE 64; O2SAT 98
[2023-11-18] MEDS: APRESOLINE 5 MG IV (03:25)
[2023-11-18] MEDS: UNASYN IV ×4 (03:25→20:59)
[2023-11-18] MEDS: NSS 1000 IV (07:08)
[2023-11-18 07:10] LABS: % Basophils 0.6 % (0-2); % Eosinophils 4.8 % (0-6); % Immature Granulocytes 0.4 % (0-0.5); % Lymphocytes 9.7 % (20.5-51.1); % Monocytes 10.9 % (1.7-9.3); % Neutrophils 73.6 % (42.2-75.2); Absolute Basophils 0.1 10^3/uL (0-0.2); Absolute Eosinophils 0.4 10^3/uL (0-0.7); Absolute Lymphocytes 0.8 10^3/uL (1.2-3.4); Absolute Monocytes 0.8 10^3/uL (0.1-0.6); Absolute Neutrophils 5.7 10^3/uL (1.4-6.5); Hematocrit 29.9 % (39.0-52.0); Hemoglobin 10.5 g/dL (13.0-18.0); Mean Corp Hgb Conc. 35.1 g/dL (33.0-37.0); Mean Corpuscular Hgb 31.7 pg (27.0-31.0); Mean Corpuscular Volume 90.3 fL (80.0-94.0); Mean Platelet Volume 11.1 fL (7.4-10.4); Nucleated Red Blood Cells % 0 % (-); Platelet Count 235 10^3/uL (130-400); Red Blood Cell Count 3.31 10^6/uL (4.70-6.10); Red Cell Dist. Width 13.2 % (11.5-14.5); White Blood Cell Count 7.7 10^3/uL (4.8-10.8)
[2023-11-18 07:37] LABS: Blood Urea Nitrogen 11 mg/dl (9-20); Calcium 9.4 mg/dl (8.4-10.2); Carbon Dioxide 24 mmol/L (22-30); Chloride 102 mmol/L (98-107); Estimated Creatinine Clearance 50 ml/min; Glucose 103 mg/dl (70-99); Potassium 4.2 mmol/L (3.5-5.1); Sodium 133 mmol/L (135-145); eGFR > 60.00
[2023-11-18] MEDS: LR IV ×2 (08:03→16:41)
[2023-11-18] MEDS: LR 1000 IV (08:35)
[2023-11-18] MEDS: COZAAR 50 MG TUBE (08:36)
[2023-11-18] MEDS: LOW STRENGTH ASPIRIN 81 MG TUBE (08:36)
[2023-11-18] MEDS: VITAMIN D3 (cholecalciferol) 125 MCG TUBE (08:36)
[2023-11-18] MEDS: NSS (PRESERVATIVE FREE) 10 ML IV (08:36)
[2023-11-18] MEDS: FLOMAX 0.4 MG TUBE (08:36)
[2023-11-18] MEDS: PROTONIX IV 20 MG IV (08:37)
[2023-11-18] MEDS: TRUSOPT 2% OPHTHALMIC SOLUTION 1 DROP BOTH EYES (08:37)
--- NOTE | 2023-11-18 13:56 | W.PN.GI.CBS2 ---
Addendum entered and electronically signed by Fransico Person MD 11/18/23 17:04:
I saw and examined the patient.
The [employer]'s note was reviewed and I agree with the note.
s/p PEG placement yesterday with
plan
Okay to start tube feeding as per dietary recommendation
Will sign off. Please call us back if any question
Original Note:
Today's Communication / Plan
-
Okay to start tube feeds as per recommendations of dietitian.
GI signing off.
Assessment / Plan
-
88 y/o male with PMH of dementia, HTN, DM, HLD, preexisting dysphagia, tremor, BPH, mitral stenosis, anemia, constipation and ambulatory dysfunction presents to the ER on 11/10/23 after having falls at home, weakness and dizziness. Patient was found
to have large left-sided cerebellar ischemic infarction. The patient is also being treated for aspiration PNA. We are asked to evaluate for PEG tube. Patient's daughter Pam Pinedo [phone] (is his Medical POA) and his son Micheal Pinedo (is
his Financial POA) [phone]. I did speak to both of them and they are both in agreement and spoke with their father and wish to procede with PEG tube. They understand that this is only a means to support nutrition/hydration and medication. That
is does not prevent aspiration or improve it. Discussion of risks including bleeding, perforation, infection, medication reaction, inability to place tube or if tube is dislodged prior to tract maturation possible peritonitis. Discussed with
daughter that DNR would need to be reversed at time of PEG tube placement. She had planned to discuss with IM Attending to reverse anyway. I did send [place] text to Dr. Humphries to make him aware as well.
11/17/23: -EGD with PEG tube placement:
normal esophagus.
- Normal stomach.
- Normal examined duodenum.
- An externally removable PEG placement was
successfully completed.
- No specimens collected.
Impression:
Oropharyngeal dysphagia-> status post PEG tube placement.
Aspiration PNA
Acute left cerebellar CVA
Plan:
Okay to start tube feeds, as per recommendation of insulation board coater operator.
Nothing further to add from a GI perspective. Will be available as needed or by request.
Subjective
Subjective
Date of Service: November 18, 2023
Patient sitting up in chair. No complaints. Patient is status post PEG tube placement yesterday.
Objective
Data Reviewed
Laboratory Data:
Laboratory Results
11/18/23 06:48
11/18/23 06:48
Laboratory Results
PT 15.5 Sec (11.4-14.6) H 11/17/23 04:36
INR 1.25 11/17/23 04:36
Total Bilirubin 1.7 mg/dl (0.2-1.3) H 11/10/23 18:49
AST 38 U/L (17-59) 11/10/23 18:49
ALT 23 U/L (0-50) 11/10/23 18:49
Alkaline Phosphatase 56 U/L (38-126) 11/10/23 18:49
Vital Signs and I&O:
Vital Signs
Temp Pulse Resp BP Pulse Ox
98.5 F 70 22 152/72 100
11/18/23 07:00 11/18/23 07:00 11/18/23 07:00 11/18/23 07:00 11/18/23 08:00
I&O
11/17/23 11/18/23 11/19/23
06:59 06:59 06:59
Intake Total 1140 / 1140
Balance 1140 / 1140
Physical Exam
Physical Exam
HEENT: Anicteric
Cardiology: Normal Sinus Rhythm
Pulmonary: Clear (Anterior)
GI: Soft, Non Distended, Non Tender, Normal Bowel Sounds and Other (PEG tube left upper quadrant, bumper at 4 cm from the skin, T-bar, no signs of erythema, exudate or edema, abdominal binder in place. Resecured.)
--- NOTE | 2023-11-18 16:06 | W.PN.HOSP.TC ---
Today's Communication/Plan
-
Initiate and advance tube feedings.
IV antibiotics to complete course of treatment for aspiration pneumonia
Physical therapy assessment
Assessment / Plan
Assessment / Plan
Impression:
Acute left cerebellar CVA.
Toxic metabolic encephalopathy.
Acute left lower lobe aspiration pneumonia.
Dysphagia.
Conditions prior to admission:
Essential hypertension
Dyslipidemia
BPH.
Type 2 diabetes by history.
PAD.
Essential tremor.
Ambulatory dysfunction with frequent falls.
Plan:
Acute left ischemic cerebellar CVA.
Confirmed with MRI of the brain
Reported ataxia with physical therapy evaluation.
Rest of the neurologic exam with no focal findings other than patient being lethargic with muffled diminished speech. Vision field deficit on the right eye.
Neurology input appreciated
workup:
Echocardiogram with preserved biventricular function and no cardioembolic source
Physical therapy assessment -rehab.
Indicated dual antiplatelet therapy for 21 days, although with inability to take p.o. transition to rectal aspirin
Goal normotension
Continue statin
Hemoglobin A1c 5.9
Toxic metabolic encephalopathy likely multifactorial in the settings of acute CVA as well as aspiration pneumonia
See below
TSH within normal limits
B12 within normal limits
Left lower lobe infiltrate secondary to aspiration pneumonia.
Stable respiratory status with no requirements of supplemental oxygen
Continue aspiration precautions
Speech and swallow evaluation including VSE confirming severe aspiration
N.p.o. except meds for now while goals of care discussion
IV fluids for maintenance
Narrow antibiotics from Zosyn to Unasyn to cover aspiration pathogens. Plan is to complete 10-day course of antibiotics through 11/20.
Dysphagia. Patient and family opted for PEG tube placement.
Status post PEG tube placement on 11/16.
Hopefully to start tube feeding slowly on 11/17.
Anemia likely chronic normocytic
Noted hemoglobin drop 11-9-10.5
Monitor closely while on DAPT.
Started PPI for prophylaxis
No iron def
Essential hypertension.
Continue losartan. Continue IV hydralazine monitor blood pressure with the goal of normotension
Type 2 diabetes by history.
Not on any glucose lowering medications prior to admission
Hemoglobin A1c 5.9
BPH
Continue Flomax
Monitor for retention.
DW Neuro at bedside during rounds
CODE STATUS DNR
Anticipated Discharge: 24 - 48 hours
Subjective/Interval History
-
Date of Service: November 18, 2023
Objective Data
-
Labs:
Laboratory Results
11/18/23
06:48
WBC 7.7
Hgb 10.5 L
Hct 29.9 L
Plt Count 235
Sodium 133 L
Potassium 4.2
Chloride 102
Carbon Dioxide 24
BUN 11
Creatinine 0.9
Glucose 103 H
Calcium 9.4
Vital Signs:
Vital Signs
Temp Pulse Resp BP Pulse Ox
100.2 F 62 20 154/91 96
11/18/23 15:51 11/18/23 15:51 11/18/23 15:51 11/18/23 15:51 11/18/23 15:51
I&O
11/17/23 11/18/23 11/19/23
06:59 06:59 06:59
Intake Total 1140 / 1140
Balance 1140 / 1140
Physical Exam
-
General: Well Developed and No Apparent Distress
HEENT: Normocephalic, Atraumatic and Moist Mucous Membranes
Respiratory: Clear to Auscultation
Cardiac: Regular Rhythm and S1/S2; Negative Murmur, Rub or Gallop
GI: Soft, Nontender, Nondistended and Normal Bowel Sounds; Negative Organomegaly
Rectal: Deferred by Provider
Musculoskeletal: No Clubbing, No Cyanosis and No Edema
Skin: Negative Rash
Neuro: Nonfocal/Grossly Intact
--- NOTE | 2023-11-18 16:29 | CM ---
Continue IV antibiotics.
Peg tube feedings started will advance as tolerated.
PT OT evals Will need auth for Acute rehab /SNF.
CM will continue to assess and assist with dc planning.
PLAN Will need auth for [facility] re[facility] VS SNF at dc.
[2023-11-18] MEDS: ARICEPT 10 MG TUBE (20:57)
[2023-11-18] MEDS: LIPITOR 10 MG TUBE (20:57)
[2023-11-19] MEDS: UNASYN IV ×4 (04:42→23:21)
[2023-11-19 07:20] VITALS: BP 150/66
[2023-11-19] MEDS: COZAAR 50 MG TUBE (09:04)
[2023-11-19] MEDS: TRUSOPT 2% OPHTHALMIC SOLUTION 1 DROP BOTH EYES (09:04)
[2023-11-19] MEDS: NSS (PRESERVATIVE FREE) 10 ML IV (09:05)
[2023-11-19] MEDS: FLOMAX 0.4 MG TUBE (09:05)
[2023-11-19] MEDS: VITAMIN D3 (cholecalciferol) 125 MCG TUBE (09:05)
[2023-11-19] MEDS: PROTONIX IV 20 MG IV (09:05)
[2023-11-19] MEDS: LOW STRENGTH ASPIRIN 81 MG TUBE (09:05)
--- NOTE | 2023-11-19 09:45 | CON.MD ---
Documented by User: Marce Stock MD, Resident 11/19/23 13:26
Consultation - Medical
-
Referring Provider: Raymond Pan
Chief Complaint: CVA
History of Present Illness:
88 yo male with a PMH of HT, HLD,BPH, DM, tremor, Dementia and Alzheimer who presented to ED on 11/10/23 with report of generalized weakness, dizziness, two falls at home, and worsened confusion starting two days ago on 11/09/23. CT notes a left
cerebellar subacute ischemic infarct which is complaint with Head MRI . Additionally, CXR is suggestive of a left mid to lower pneumonia and the patient is being treated for that problem.The patient will complete his antibiotic cure through
11/20. PEG was placed on 11/17/[address] Song to support the patient`s nutrition taking.
On today`s examination, The patient was seen in his bed and he was only oriented to day of the week, he was not oriented to place or people. He was mildly lethargic and only he opens his eyes with verbal stimulation. He partially completed 2 words
commands during the examination after a few repeated verbal stimulation. His mental status was discussed with his nurse and it was told he is sometimes more awake and oriented.On examination, no focal neuro-musculoskeletal examination findings were
found.
Past Medical History:
BPH
HTN
HLD
Dementia
Alzheimer
NIDDM
PVD
Mitral stenosis/insufficiency
Anemia
Essential tremor
Social History
Tobacco: Non-smoker
Alcohol: None
Drug: None
Living: With Family
Procedure History:
hernia repair
bladder surgery
Family History:
Mother-CVA
Social History:
Functional Level Premorbidly: Was able to ambulate with a walker. He uses a walker to ambulate.
Functional Level Currently: Bed Mobility: Sit to supine- Maximum assistance -Comment 2 person assist for trunk and LEs into bed, Transfer:Sit to stand- Moderate assistance, Stand to sit- Moderate assistance, Comment ASSIST OF 2 FOR LIFT-OFF FROM
CHAIR, manual cues for hand placement, Ambulation: 5 feet forward, 5 feet sidesteps to right with RW min to mod assist of 2, Gait comment unsteady, narrow base of support, short step length, assist for balance and RW management.
Social History:
Tobacco:Former smoker.
Alcohol:Rare alcohol
Drug use: Denies
Lives with: He lives with his daughter who is his caregiver
24-hour assistance available:
Number of floors:
# steps to enter:
# steps to second floor:
Potential First floor set up:
Driving: No
Occupation: No
Review of Systems:
History Source: Patient
EENT: Swallowing Difficulty, EOM are normal
Respiratory: Cough; Negative Trouble Breathing
Cardiac: Negative Chest Pain or Palpitations
Abdomen/GI: Negative Nausea
Neuro: Negative Dizzy, Headache, Weakness, Numbness, Ataxia, Tremors or Speech
Medications:
Allergies
Allergy/AdvReac Type Severity Reaction Status Date / Time
No Known Allergies Allergy Verified 11/10/19 17:44
Home Medications
tamsulosin 0.4 mg capsule 0.4 mg PO DAILY Urinary Issue 07/02/18
atorvastatin 10 mg tablet 10 mg PO HS High Cholesterol 04/15/23
acetaminophen 325 mg tablet (Tylenol) 325 mg PO Q6HPRN PRN mild pain 11/10/23
cholecalciferol (vitamin D3) 125 mcg (5,000 unit) tablet (Vitamin D3) 125 mcg PO DAILY Supplement 11/10/23
donepezil 10 mg tablet 10 mg PO HS Neurological Condition 11/10/23
dorzolamide (PF) 2 % (PF) eye drops 1 drp BOTH EYES DAILY Eye Condition 11/10/23
losartan 100 mg tablet 50 mg PO DAILY Blood Pressure 11/10/23
pyridoxine (vitamin B6) 100 mg tablet 100 mg PO HS Supplement 11/10/23
Vitals:
Vital Signs
Temp Pulse Resp BP Pulse Ox
98.4 F 49 20 150/66 100
11/19/23 07:20 11/19/23 07:20 11/19/23 07:20 11/19/23 07:20 11/19/23 07:20
Physical Exam:
General: No Apparent Distress
HEENT: Normocephalic, Atraumatic and Moist Mucous Membranes
Respiratory: Clear to Auscultation
Cardiac: Regular Rhythm and S1/S2; Negative Murmur, Rub or Gallop
GI: Soft, Nontender, Nondistended and Normal Bowel Sounds; Negative Organomegaly. Has PEG tube
Rectal: Deferred by Provider
Musculoskeletal: No Clubbing, No Cyanosis and No Edema
Skin: Negative Rash
Neuro: Nonfocal/Grossly Intact
Motor:Generalized muscle weakness
Neurology Exam:
Orientation: Oriented day not year and month, not oriented place and people
Memory:immediately memory and salvage determiner memory is not intact
Higher cortical function:Not intact
Repetition: Not Intact
Comprehension:Not Intact
Two step command:Partially Intact with repeated verbal stimulation
Cranial Nerves:
CNII: Pupillary light reflex: Intact Visual Field:deficit on the right eye. Was able to be assessed suboptimal due patient`s mental condition.
CN III, IV, : Extraocular muscles intact.
CN V: Facial Sensation at Forehead: Intact, Maxilla: Intact, Mandible: Intact
CN VII: Facial movement: Symmetric
CN VIII: Hearing: Normal with normal talking
CN IX/X: Positive for dysarthria and dysphagia
CN XI: Shoulder shrug: Symmetric
CN XII: Tongue protrusion: Midline
Sensory:
Light touch: Assessment was suboptimal due patient`s mental condition.
Reflexes:
Biceps: 2+ bilaterally
Brachioradialis: 2+ bilaterally
Triceps: 2+ bilaterally
Patellar: 2+ bilaterally
Achilles: 2+ bilaterally
Babinski: Down going bilaterally
Clonus: None
Te: Negative bilaterally
Cerebellar: Dysmetria/Ataxia: Was not able to assessed due patient`s mental condition.
Musculoskeletal:
Motor: (Manual muscle scale 0-5):Generalized motor weakness was found. No focal neuromuscular examination findings.
Tone: Normal in all extremities
Range of Motion: Passively within normal limits in all extremities
Lab Results
Laboratory Data
PT 15.5 Sec (11.4-14.6) H 11/17/23 04:36
Total Bilirubin 1.7 mg/dl (0.2-1.3) H 11/10/23 18:49
AST 38 U/L (17-59) 11/10/23 18:49
ALT 23 U/L (0-50) 11/10/23 18:49
Alkaline Phosphatase 56 U/L (38-126) 11/10/23 18:49
Lab Results - Hematology
11/17/23 11/18/23
04:36 06:48
WBC 5.6 7.7
Lab Results - Chemistry
11/17/23 11/18/23
04:36 06:48
BUN 10 11
Creatinine 0.9 0.9
Estimated Creat Clear 50 50
Diagnostic Results:
Head CT on 11/10/23: Left cerebellar subacute infarct. No evidence of herniation. No acute intracranial hemorrhage. No skull fracture
Head MRI on 11/12/23: There is a region of abnormal increased diffusion-weighted signal in the left cerebellar hemisphere, compatible with subacute infarction, corresponding to region on recent CT of the head.
Centrally within this region of infarction, there are smaller foci of decreased T2 gradient-echo signal and susceptibility blooming, compatible with blood products. This most likely represents petechial hemorrhage associated with the region of
infarction. See above discussion. As warranted, consideration could be given to a CT of the head determine if there is any macroscopic hemorrhage visible by CT.
No evidence for obstructive hydrocephalus.
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 For further imaging evaluation, as warranted, thin section MRI imaging of the pituitary gland can be obtained pre and postcontrast.
Plan
CVA: Secondary prophylaxis with dual antiplatelet therapy, statin, and blood pressure control (SBP less than 180 and diastolic less than 100 to participate with therapy for ischemic stroke). Continue to monitor neurologic status. Continue aspirin
Aspiration Pneumonia: Narrow antibiotics from Zosyn to Unasyn to cover aspiration pathogens. Plan is to complete 10-day course of antibiotics through 11/20.
Dysphagia:significant dysphagia: Left lower lobe infiltrate secondary to aspiration pneumonia: continue aspiration precautions. speech evaluation, oral care protocol, Advance diet as tolerated.Patient and family opted for PEG tube placement. PEG
was placed on 11/16 and patient was started tube feeding on 11/17.
Dysarthria: Continue speech therapy. Patient is lethargic with muffled diminished speech. .
HLD: Continue statin
Mild Cognitive Impairment: Minimize sedating medications
Dementia: The patient is on Donezepil 10 mg
GI prophylaxis: Continue PPI for prophylaxis
Assessment: 88 yo male with a PMH of HT, HLD,BPH, DM, tremor, Dementia and Alzheimer who presented to ED on 11/10/23 with report of generalized weakness, dizziness, two falls at home, and worsened confusion starting two days ago. CT noted a left
cerebellar subacute ischemic infarct which is complaint with Head MRI. The patient was diagnosed aspiration Pneumonia and will complete his antibiotic cure through 11/20. PEG was placed on 11/17/23 and the patient is started on tube feeding
yesterday, On today`s examination, the patient was not fully oriented and was mildly lethargic. He partially completed 2 words commands during the examination after a few repeated verbal stimulation. His mental status was discussed with his nurse
and it was told that he is sometimes more awake and oriented.On examination, generalized motor weakness was found, no focal neuro-musculoskeletal examination findings or pathologic reflexes were found. The examination was suboptimal due patient`s
impaired mental condition.
Summary of Recommendations
The patient was under supervision of her daughter in-law before his hospitalization. But he was able to mobilize with a walker with assistance. The patient is mildly lethargic and has difficulty to obey 2 words commends. The patient has recent CVA
and has a PMH of dementia and Alzheimer which is contributing his current worsened mental condition and his being minimal responsive currently. Per his nurse, he is sometimes more awake and responsive. Per neurology report, it was recommended that
hospice would be reasonable given his chances for significant improvement with his advanced age and existing mild cognitive impairment/dementia would be minimal. It will be discussed with the attending if the patient can have benefit from being at
acute rehabilitation unit or not. SNIF can be another option for the discharge plan.
Will continue to follow patient.
Will sign off, please re-consult if needed.
Thank you for allowing me to care for your patient. Please contact me with any questions or concerns.
Marce Stock MD

Documented by User: Denise Pantoja MD 11/19/23 16:02
Consultation - Medical
-
Referring Provider: Raymond Pan
Chief Complaint: CVA
History of Present Illness:
88 yo male with a PMH of HT, HLD,BPH, DM, tremor, Dementia and Alzheimer who presented to ED on 11/10/23 with report of generalized weakness, dizziness, two falls at home, and worsened confusion starting two days ago on 11/09/23. CT notes a left
cerebellar subacute ischemic infarct which is complaint with Head MRI . Additionally, CXR is suggestive of a left mid to lower pneumonia and the patient is being treated for that problem.The patient will complete his antibiotic cure through
11/20. PEG was placed on 11/17/[address] Song to support the patient`s nutrition taking.
On today`s examination, The patient was seen in his bed and he was only oriented to day of the week, he was not oriented to place or people. He was mildly lethargic and only opens his eyes with verbal stimulation. He partially completed 2 words
commands during the examination after a few repeated verbal stimulation. His mental status was discussed with his nurse and it was told it fluctuates.On examination, no focal neuro-musculoskeletal examination findings were found.
Past Medical History:
BPH
HTN
HLD
Dementia
Alzheimer
NIDDM
PVD
Mitral stenosis/insufficiency
Anemia
Essential tremor
Social History
Tobacco: Non-smoker
Alcohol: None
Drug: None
Living: With Family
Procedure History:
hernia repair
bladder surgery
Family History:
Mother-CVA
Social History:
Functional Level Premorbidly: Was able to ambulate with a walker. He uses a walker to ambulate.
Functional Level Currently: Bed Mobility: Sit to supine- Maximum assistance -Comment 2 person assist for trunk and LEs into bed, Transfer:Sit to stand- Moderate assistance, Stand to sit- Moderate assistance, Comment ASSIST OF 2 FOR LIFT-OFF FROM
CHAIR, manual cues for hand placement, Ambulation: 5 feet forward, 5 feet sidesteps to right with RW min to mod assist of 2, Gait comment unsteady, narrow base of support, short step length, assist for balance and RW management.
Social History:
Tobacco:Former smoker.
Alcohol:Rare alcohol
Drug use: Denies
Lives with: He lives with his daughter and son in law who is his caregiver in home with few [place] and first floor bed and bathroom.
Driving: No
Occupation: No
Review of Systems:
History Source: Patient
EENT: Swallowing Difficulty, EOM are normal
Respiratory: Cough; Negative Trouble Breathing
Cardiac: Negative Chest Pain or Palpitations
Abdomen/GI: Negative Nausea
Neuro: Negative Dizzy, Headache, Weakness, Numbness, Ataxia, Tremors or Speech
Medications:
Allergies
Allergy/AdvReac Type Severity Reaction Status Date / Time
No Known Allergies Allergy Verified 11/10/19 17:44
Home Medications
tamsulosin 0.4 mg capsule 0.4 mg PO DAILY Urinary Issue 07/02/18
atorvastatin 10 mg tablet 10 mg PO HS High Cholesterol 04/15/23
acetaminophen 325 mg tablet (Tylenol) 325 mg PO Q6HPRN PRN mild pain 11/10/23
cholecalciferol (vitamin D3) 125 mcg (5,000 unit) tablet (Vitamin D3) 125 mcg PO DAILY Supplement 11/10/23
donepezil 10 mg tablet 10 mg PO HS Neurological Condition 11/10/23
dorzolamide (PF) 2 % (PF) eye drops 1 drp BOTH EYES DAILY Eye Condition 11/10/23
losartan 100 mg tablet 50 mg PO DAILY Blood Pressure 11/10/23
pyridoxine (vitamin B6) 100 mg tablet 100 mg PO HS Supplement 11/10/23
Vitals:
Vital Signs
Temp Pulse Resp BP Pulse Ox
98.4 F 49 20 150/66 100
11/19/23 07:20 11/19/23 07:20 11/19/23 07:20 11/19/23 07:20 11/19/23 07:20
Physical Exam:
General: No Apparent Distress
HEENT: Normocephalic, Atraumatic and Moist Mucous Membranes
Respiratory: Clear to Auscultation
Cardiac: Regular Rhythm and S1/S2; Negative Murmur, Rub or Gallop
GI: Soft, Nontender, Nondistended and Normal Bowel Sounds; Negative Organomegaly. Has PEG tube
Rectal: Deferred by Provider
Musculoskeletal: No Clubbing, No Cyanosis and No Edema
Skin: Negative Rash
Neuro: Nonfocal/Grossly Intact
Motor:Generalized muscle weakness
Neurology Exam:
Orientation: Oriented day not year and month, not oriented place and people
Memory:immediately memory and salvage determiner memory is not intact
Higher cortical function:Not intact
Repetition: Not Intact
Comprehension:Not Intact
Two step command:Partially Intact with repeated verbal stimulation
Cranial Nerves:
CNII: Pupillary light reflex: Intact Visual Field:deficit on the right eye. Was able to be assessed suboptimal due patient`s mental condition.
CN III, IV, : Extraocular muscles intact.
CN V: Facial Sensation at Forehead: Intact, Maxilla: Intact, Mandible: Intact
CN VII: Facial movement: Symmetric
CN VIII: Hearing: Normal with normal talking
CN IX/X: Positive for dysarthria and dysphagia
CN XI: Shoulder shrug: Symmetric
CN XII: Tongue protrusion: Midline
Sensory:
Light touch: Assessment was suboptimal due patient`s mental condition.
Reflexes:
Biceps: 2+ bilaterally
Brachioradialis: 2+ bilaterally
Triceps: 2+ bilaterally
Patellar: 2+ bilaterally
Achilles: 2+ bilaterally
Babinski: Down going bilaterally
Clonus: None
Te: Negative bilaterally
Cerebellar: Dysmetria/Ataxia: Was not able to assessed due patient`s mental condition.
Musculoskeletal:
Motor: (Manual muscle scale 0-5):Generalized motor weakness was found. No focal neuromuscular examination findings.
Tone: Normal in all extremities
Range of Motion: Passively within normal limits in all extremities
Lab Results
Laboratory Data
PT 15.5 Sec (11.4-14.6) H 11/17/23 04:36
Total Bilirubin 1.7 mg/dl (0.2-1.3) H 11/10/23 18:49
AST 38 U/L (17-59) 11/10/23 18:49
ALT 23 U/L (0-50) 11/10/23 18:49
Alkaline Phosphatase 56 U/L (38-126) 11/10/23 18:49
Lab Results - Hematology
11/17/23 11/18/23
04:36 06:48
WBC 5.6 7.7
Lab Results - Chemistry
11/17/23 11/18/23
04:36 06:48
BUN 10 11
Creatinine 0.9 0.9
Estimated Creat Clear 50 50
Diagnostic Results:
Head CT on 11/10/23: Left cerebellar subacute infarct. No evidence of herniation. No acute intracranial hemorrhage. No skull fracture
Head MRI on 11/12/23: There is a region of abnormal increased diffusion-weighted signal in the left cerebellar hemisphere, compatible with subacute infarction, corresponding to region on recent CT of the head.
Centrally within this region of infarction, there are smaller foci of decreased T2 gradient-echo signal and susceptibility blooming, compatible with blood products. This most likely represents petechial hemorrhage associated with the region of
infarction. See above discussion. As warranted, consideration could be given to a CT of the head determine if there is any macroscopic hemorrhage visible by CT.
No evidence for obstructive hydrocephalus.
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 For further imaging evaluation, as warranted, thin section MRI imaging of the pituitary gland can be obtained pre and postcontrast.
Plan
CVA: Secondary prophylaxis with dual antiplatelet therapy, statin, and blood pressure control (SBP less than 180 and diastolic less than 100 to participate with therapy for ischemic stroke). Continue to monitor neurologic status. Continue aspirin
Aspiration Pneumonia: Narrow antibiotics from Zosyn to Unasyn to cover aspiration pathogens. Plan is to complete 10-day course of antibiotics through 11/20.
Dysphagia:significant dysphagia: Left lower lobe infiltrate secondary to aspiration pneumonia: continue aspiration precautions. speech evaluation, oral care protocol, Advance diet as tolerated.Patient and family opted for PEG tube placement. PEG
was placed on 11/16 and patient was started tube feeding on 11/17.
Dysarthria: Continue speech therapy. Patient is lethargic with muffled diminished speech. .
HLD: Continue statin
Mild Cognitive Impairment: Minimize sedating medications
Dementia: The patient is on Donezepil 10 mg
GI prophylaxis: Continue PPI for prophylaxis
Assessment: 88 yo male with a PMH of HT, HLD,BPH, DM, tremor, Dementia and Alzheimer who presented to ED on 11/10/23 with report of generalized weakness, dizziness, two falls at home, and worsened confusion starting two days ago. CT noted a left
cerebellar subacute ischemic infarct which is complaint with Head MRI. The patient was diagnosed aspiration Pneumonia and will complete his antibiotic cure through 11/20. PEG was placed on 11/17/23 and the patient is started on tube feeding
yesterday, On today`s examination, the patient was not fully oriented and was mildly lethargic. He partially completed 2 words commands during the examination after a few repeated verbal stimulation. His mental status was discussed with his nurse
and it was told that he is sometimes more awake and oriented.On examination, generalized motor weakness was found, no focal neuro-musculoskeletal examination findings or pathologic reflexes were found. The examination was suboptimal due patient`s
impaired mental condition.
Summary of Recommendations
The patient was under supervision of her daughter in-law before his hospitalization. But he was able to mobilize with a walker with assistance. The patient is mildly lethargic and has difficulty to obey 2 words commends. The patient has recent CVA
and has a PMH of dementia and Alzheimer which is contributing his current worsened mental condition and his being minimal responsive currently. Per his nurse, he is sometimes more awake and responsive. Per neurology report, it was recommended that
hospice would be reasonable given his chances for significant improvement with his advanced age and existing mild cognitive impairment/dementia would be minimal. It will be discussed with the attending if the patient can have benefit from being at
acute rehabilitation unit or not. SNIF can be another option for the discharge plan.
Will continue to follow patient.
Will sign off, please re-consult if needed.
Thank you for allowing me to care for your patient. Please contact me with any questions or concerns.
Marce Stock MD
Attending Statement:
I saw and examined the patient today. I agree with the above subjective and physical exam, and plan as documented by resident Marce Stock with adjustments made as necessary. He has cognitive deficits at baseline now worsened with recent CVA.
Would have very limited carryover and his fluctuating mental status/lethargy also a concern for tolerance 3hrs therapy per day. Would recommend palliative consult to discuss goals of care with patient and family. If goal is to return home under
24/ care of family, a short stay at [facility] may be helpful for medical stability and family training to facilitate safe d/c to home. But full discussion of his current needs and goals will need to be had given his worsened functional status. He is
currently requiring modAx2 for transfers and mobility per PT notes, he remains well below his prior functional level - he will likely need 2 person assist, possible WC level and if this will not be available or house unable to accommodate, may make
SNF a preferred option.
[2023-11-19 14:36] LABS: Blood Urea Nitrogen 14 mg/dl (9-20); Calcium 9.3 mg/dl (8.4-10.2); Carbon Dioxide 28 mmol/L (22-30); Chloride 99 mmol/L (98-107); Estimated Creatinine Clearance 50 ml/min; Glucose 160 mg/dl (70-99); Potassium 3.8 mmol/L (3.5-5.1); Sodium 133 mmol/L (135-145); eGFR > 60.00
[2023-11-19 15:16] VITALS: BP 132/67
[2023-11-19 15:17] VITALS: BP 132/67; PULSE 51; O2SAT 100
--- NOTE | 2023-11-19 15:37 | CM ---
IV antibiotics maintained.
Peg tube feedings advanced and he tolerated .
PT OT sushil Will need auth for Acute rehab /SNF.
Spoke with Pam nelson [facility]
Spoke with Alisia Puente to evaluate pt.
Will need auth
CM will continue to assess and assist with dc planning.
PLAN Will need auth for [facility] VS SNF at dc.
--- NOTE | 2023-11-19 15:51 | W.PN.HOSP.TC ---
Today's Communication/Plan
-
Advance tube feeding to goal
Continue physical therapy
Placement likely to acute rehab
Assessment / Plan
Assessment / Plan
Impression:
Acute left cerebellar CVA.
Toxic metabolic encephalopathy.
Acute left lower lobe aspiration pneumonia.
Dysphagia.
Conditions prior to admission:
Essential hypertension
Dyslipidemia
BPH.
Type 2 diabetes by history.
PAD.
Essential tremor.
Ambulatory dysfunction with frequent falls.
Plan:
Acute left ischemic cerebellar CVA.
Confirmed with MRI of the brain
Reported ataxia with physical therapy evaluation.
Rest of the neurologic exam with no focal findings other than patient being lethargic with muffled diminished speech. Vision field deficit on the right eye.
Neurology input appreciated
workup:
Echocardiogram with preserved biventricular function and no cardioembolic source
Physical therapy assessment -rehab.
Indicated dual antiplatelet therapy for 21 days, although with inability to take p.o. transition to rectal aspirin
Goal normotension
Continue statin
Hemoglobin A1c 5.9
Toxic metabolic encephalopathy likely multifactorial in the settings of acute CVA as well as aspiration pneumonia
See below
TSH within normal limits
B12 within normal limits
Left lower lobe infiltrate secondary to aspiration pneumonia.
Stable respiratory status with no requirements of supplemental oxygen
Continue aspiration precautions
Speech and swallow evaluation including VSE confirming severe aspiration
N.p.o. except meds for now while goals of care discussion
IV fluids for maintenance
Narrow antibiotics from Zosyn to Unasyn to cover aspiration pathogens. Plan is to complete 10-day course of antibiotics through 11/20.
Dysphagia. Patient and family opted for PEG tube placement.
Status post PEG tube placement on 11/16.
Hopefully to start tube feeding slowly on 11/17.
Anemia likely chronic normocytic
Noted hemoglobin drop 11-9-10.5
Monitor closely while on DAPT.
Started PPI for prophylaxis
No iron def
Essential hypertension.
Continue losartan. Continue IV hydralazine monitor blood pressure with the goal of normotension
Type 2 diabetes by history.
Not on any glucose lowering medications prior to admission
Hemoglobin A1c 5.9
BPH
Continue Flomax
Monitor for retention.
DW Neuro at bedside during rounds
CODE STATUS DNR
Anticipated Discharge: 24 - 48 hours
Subjective/Interval History
-
Date of Service: November 19, 2023
Objective Data
-
Labs:
Laboratory Results
11/19/23
13:46
Sodium 133 L
Potassium 3.8
Chloride 99
Carbon Dioxide 28
BUN 14
Creatinine 0.9
Glucose 160 H
Calcium 9.3
Vital Signs:
Vital Signs
Temp Pulse Resp BP Pulse Ox
98.2 F 51 18 132/67 100
11/19/23 15:16 11/19/23 15:16 11/19/23 15:16 11/19/23 15:16 11/19/23 15:16
I&O
11/18/23 11/19/23 11/20/23
06:59 06:59 06:59
Intake Total 1140 / 1140 1020 / 1020
Balance 1140 / 1140 1020 / 1020
Physical Exam
-
General: Well Developed and No Apparent Distress
HEENT: Normocephalic, Atraumatic and Moist Mucous Membranes
Respiratory: Clear to Auscultation
Cardiac: Regular Rhythm and S1/S2; Negative Murmur, Rub or Gallop
GI: Soft, Nontender, Nondistended and Normal Bowel Sounds; Negative Organomegaly
Rectal: Deferred by Provider
Musculoskeletal: No Clubbing, No Cyanosis and No Edema
Skin: Negative Rash
Neuro: Nonfocal/Grossly Intact
[2023-11-19 23:00] VITALS: BP 141/71
[2023-11-19] MEDS: ARICEPT 10 MG TUBE (23:19)
[2023-11-19] MEDS: LIPITOR 10 MG TUBE (23:20)
[2023-11-19] MEDS: TYLENOL 650 MG TUBE (23:58)
[2023-11-20] MEDS: UNASYN IV ×4 (04:50→22:30)
[2023-11-20 07:59] VITALS: BP 170/79
[2023-11-20 09:28] LABS: Blood Urea Nitrogen 16 mg/dl (9-20); Calcium 9.4 mg/dl (8.4-10.2); Carbon Dioxide 24 mmol/L (22-30); Chloride 101 mmol/L (98-107); Estimated Creatinine Clearance 50 ml/min; Glucose 139 mg/dl (70-99); Potassium 3.8 mmol/L (3.5-5.1); Sodium 133 mmol/L (135-145); eGFR > 60.00
[2023-11-20] MEDS: FLOMAX 0.4 MG TUBE (09:28)
[2023-11-20] MEDS: LOW STRENGTH ASPIRIN 81 MG TUBE (09:29)
[2023-11-20] MEDS: COZAAR 50 MG TUBE (09:29)
[2023-11-20] MEDS: DESENEX/MITRAZOL/ZEASORB 1 APPLIC TOPICAL ×2 (09:29→22:31)
[2023-11-20] MEDS: VITAMIN D3 (cholecalciferol) 125 MCG TUBE (09:29)
[2023-11-20] MEDS: PROTONIX IV 20 MG IV (09:30)
[2023-11-20] MEDS: NSS (PRESERVATIVE FREE) 10 ML IV (09:30)
[2023-11-20] MEDS: TRUSOPT 2% OPHTHALMIC SOLUTION 1 DROP BOTH EYES (09:30)
[2023-11-20 10:53] VITALS: BP 159/82
[2023-11-20 15:20] VITALS: BP 135/84
--- NOTE | 2023-11-20 15:46 | CM ---
Peg tube feedings advanced to 55 cc/hr..
PT OT sushil Will need auth for Acute rehab /SNF.
Spoke with Pam nelson she would like to send pt to [place] [facility].
Spoke with [facility] Puente can accept.
Spoke with Carey at [facility] she said to obtain auth call [phone] option 2..
PLAN Will need auth for [facility]
--- NOTE | 2023-11-20 16:08 | W.PN.HOSP.TC ---
Today's Communication/Plan
-
Neurologic status stable.
Tolerates tube feeding with a rate at the goal.
Continue aspiration precautions.
IV antibiotics through 11/20
Bowel regimen/enema
Medically optimized for placement to acute rehab pending insurance authorization
Assessment / Plan
Assessment / Plan
Impression:
Acute left cerebellar CVA.
Toxic metabolic encephalopathy.
Acute left lower lobe aspiration pneumonia.
Dysphagia.
Conditions prior to admission:
Essential hypertension
Dyslipidemia
BPH.
Type 2 diabetes by history.
PAD.
Essential tremor.
Ambulatory dysfunction with frequent falls.
Plan:
Acute left ischemic cerebellar CVA.
Confirmed with MRI of the brain
Reported ataxia with physical therapy evaluation.
Rest of the neurologic exam with no focal findings other than patient being lethargic with muffled diminished speech. Vision field deficit on the right eye.
Neurology input appreciated
workup:
Echocardiogram with preserved biventricular function and no cardioembolic source
Physical therapy assessment -rehab.
Indicated dual antiplatelet therapy for 21 days, although with inability to take p.o. transition to rectal aspirin
Goal normotension
Continue statin
Hemoglobin A1c 5.9
Toxic metabolic encephalopathy likely multifactorial in the settings of acute CVA as well as aspiration pneumonia
See below
TSH within normal limits
B12 within normal limits
Left lower lobe infiltrate secondary to aspiration pneumonia.
Stable respiratory status with no requirements of supplemental oxygen
Continue aspiration precautions
Speech and swallow evaluation including VSE confirming severe aspiration
N.p.o. except meds for now while goals of care discussion
IV fluids for maintenance
Narrow antibiotics from Zosyn to Unasyn to cover aspiration pathogens. Plan is to complete 10-day course of antibiotics through 11/20.
Dysphagia. Patient and family opted for PEG tube placement.
Status post PEG tube placement on 11/16.
Hopefully to start tube feeding slowly on 11/17.
Anemia likely chronic normocytic
Noted hemoglobin drop 11-9-10.5
Monitor closely while on DAPT.
Started PPI for prophylaxis
No iron def
Essential hypertension.
Continue losartan. Continue IV hydralazine monitor blood pressure with the goal of normotension
Type 2 diabetes by history.
Not on any glucose lowering medications prior to admission
Hemoglobin A1c 5.9
BPH
Continue Flomax
Monitor for retention.
DW Neuro at bedside during rounds
CODE STATUS DNR
Anticipated Discharge: Within 24 hours
Subjective/Interval History
-
Date of Service: November 20, 2023
Objective Data
-
Labs:
Laboratory Results
11/20/23
07:11
Sodium 133 L
Potassium 3.8
Chloride 101
Carbon Dioxide 24
BUN 16
Creatinine 0.9
Glucose 139 H
Calcium 9.4
Vital Signs:
Vital Signs
Temp Pulse Resp BP Pulse Ox
98 F 55 16 135/84 99
11/20/23 15:20 11/20/23 15:20 11/20/23 15:20 11/20/23 15:20 11/20/23 15:20
I&O
11/19/23 11/20/23 11/21/23
06:59 06:59 06:59
Intake Total 1020 / 1020 1490 / 1490
Balance 1020 / 1020 1490 / 1490
Physical Exam
-
General: Well Developed and No Apparent Distress
HEENT: Normocephalic, Atraumatic and Moist Mucous Membranes
Respiratory: Clear to Auscultation
Cardiac: Regular Rhythm and S1/S2; Negative Murmur, Rub or Gallop
GI: Soft, Nontender, Nondistended, Normal Bowel Sounds and Peg Tube; Negative Organomegaly
Rectal: Deferred by Provider
Musculoskeletal: No Clubbing, No Cyanosis and No Edema
Skin: Negative Rash
Neuro: Nonfocal/Grossly Intact
[2023-11-20 16:14] VITALS: BP 163/84; PULSE 55; O2SAT 100
[2023-11-20 16:15] VITALS: BP 163/84; PULSE 52; O2SAT 100
[2023-11-20] MEDS: LIPITOR 10 MG TUBE (22:30)
[2023-11-20] MEDS: ARICEPT 10 MG TUBE (22:30)
[2023-11-20 23:30] VITALS: BP 153/70
[2023-11-21] MEDS: UNASYN IV ×2 (04:14→10:34)
[2023-11-21 07:20] VITALS: BP 165/75
[2023-11-21] MEDS: PROTONIX IV 20 MG IV (10:13)
[2023-11-21] MEDS: TRUSOPT 2% OPHTHALMIC SOLUTION 1 DROP BOTH EYES (10:13)
[2023-11-21] MEDS: FLOMAX 0.4 MG TUBE (10:14)
[2023-11-21] MEDS: DESENEX/MITRAZOL/ZEASORB 1 APPLIC TOPICAL (10:14)
[2023-11-21] MEDS: VITAMIN D3 (cholecalciferol) 125 MCG TUBE (10:14)
[2023-11-21] MEDS: NSS (PRESERVATIVE FREE) 10 ML IV (10:14)
[2023-11-21] MEDS: LOW STRENGTH ASPIRIN 81 MG TUBE (10:14)
[2023-11-21] MEDS: COZAAR 50 MG TUBE (10:14)
--- NOTE | 2023-11-21 11:07 | PN.CDI ---
CDI
- -
CDI:
Physician Documentation Request
Admit Date: 11/10/23 22:58
Dear Doctor Raymond,
Patient admitted for CVA.
Laboratory Tests
11/18/23 11/19/23 11/20/23
06:48 13:46 07:11
Sodium 133 L 133 L 133 L
Based on the above, could you clarify in the progress notes, the appropriate diagnosis, if significant, that supports the above abnormalities and additional evaluation, monitoring and/or treatment rendered:
Hyponatremia
Abnormal lab value insignificant
Other
Use of terms such as suspected, likely, concern for, or probable (associated with a specific diagnosis that is being evaluated, monitored, or treated as if it exists) are acceptable and can be coded in the inpatient setting, when documented at the
time of discharge.
Thank you,
Marissa Vega RN, BSN
CDI Specialist
Available via [employer] text
Please use your independent medical judgment in providing your response.
--- NOTE | 2023-11-21 11:48 | W.DS.TRANS ---
DC Summary - [employer]
-
Discharge Instructions:
Discharge Diagnosis/Procedures Acute CVA
Aspiration pneumonia
Diet Tube feeding
Additional Diets Jevity 1.5 @55 ml/hr Water flushes 25ml/hr
Instructions:
Stand-Alone Forms:
Changes to Home Medications: Yes
Discharge Medications:
DC Medications w/original date entered in [employer]
dorzolamide (PF) 2 % (PF) eye drops 1 drp BOTH EYES DAILY Eye Condition 11/10/23
acetaminophen 325 mg tablet 650 mg (2 x 325 mg) feeding tube Q4HPRN PRN BARNES, mild pain, or temp >100.4F #30 tabs 11/21/23
aspirin 81 mg chewable tablet 81 mg feeding tube DAILY #30 tabs 11/21/23
atorvastatin 10 mg tablet 10 mg feeding tube HS High Cholesterol #0 tabs 11/21/23
cholecalciferol (vitamin D3) 125 mcg (5,000 unit) tablet 125 mcg feeding tube DAILY #30 tabs 11/21/23
clopidogrel 75 mg tablet 75 mg feeding tube DAILY #21 tabs 11/21/23
donepezil 10 mg tablet 10 mg feeding tube HS Neurological Condition #0 tabs 11/21/23
losartan 100 mg tablet 50 mg (1/2 x 100 mg) feeding tube DAILY Blood Pressure #0 tabs 11/21/23
pantoprazole 40 mg granules delayed-release for susp in packet (Protonix) 40 mg feeding tube DAILY #30 ea 11/21/23
tamsulosin 0.4 mg capsule 0.4 mg feeding tube DAILY #30 caps 11/21/23
Home Medication Changes
DAPT along with PPI for 21 days
Pending Results: No
--- NOTE | 2023-11-21 12:58 | W.DS.TRANS ---
DC Summary - [employer]
-
Discharge Instructions:
Discharge Diagnosis/Procedures Acute CVA
Aspiration pneumonia
Diet Tube feeding
Additional Diets Jevity 1.5 @55 ml/hr Water flushes 25ml/hr
Instructions:
Stand-Alone Forms:
Changes to Home Medications: Yes
Discharge Medications:
DC Medications w/original date entered in [employer]
dorzolamide (PF) 2 % (PF) eye drops 1 drp BOTH EYES DAILY Eye Condition 11/10/23
acetaminophen 325 mg tablet 650 mg (2 x 325 mg) feeding tube Q4HPRN PRN BARNES, mild pain, or temp >100.4F #30 tabs 11/21/23
aspirin 81 mg chewable tablet 81 mg feeding tube DAILY #30 tabs 11/21/23
atorvastatin 10 mg tablet 10 mg feeding tube HS High Cholesterol #0 tabs 11/21/23
cholecalciferol (vitamin D3) 125 mcg (5,000 unit) tablet 125 mcg feeding tube DAILY #30 tabs 11/21/23
cimetidine 400 mg tablet 400 mg feeding tube HS #30 tabs 11/21/23
clopidogrel 75 mg tablet 75 mg feeding tube DAILY #21 tabs 11/21/23
donepezil 10 mg tablet 10 mg feeding tube HS Neurological Condition #0 tabs 11/21/23
losartan 100 mg tablet 50 mg (1/2 x 100 mg) feeding tube DAILY Blood Pressure #0 tabs 11/21/23
tamsulosin 0.4 mg capsule 0.4 mg feeding tube DAILY #30 caps 11/21/23
Home Medication Changes
DAPT for 21 days along with cimetidine for GI prophylaxis
Pending Results: No
[2023-11-21 13:38] VITALS: BP 160/78
--- NOTE | 2023-11-21 17:40 | CM ---
met with patient at bedside.call from cedric isaac thmiley bed s available for patient.cedric obtained auth from [employer].spoke with nurse that bed is available now per cedric.i called daughter pat to let her know and discussed
imm letter with her .she gave verbal permission to sign imm letter.pt transferred to [facility] [place].
== END 2023-11-21 17:59 | DRG 64 ==
LOC: 4 EAST ACU 22:58
PROVIDERS: Emergency Medicine; Internal Medicine; Nurse Practitioner; Registered Nurse; Surgery; ADMITTING PHYSICIAN Hospitalist; ATTENDING PHYSICIAN Internal Medicine; CONSULT PHYSICIAN Specialist; EMERGENCY PHYSICIAN Emergency Medicine; FAMILY PHYSICIAN Student in an Organized Health Care Education/Training Program; OTHER PHYSICIAN Physical Medicine & Rehabilitation; OTHER PHYSICIAN Psychiatry & Neurology Neurology
PROC: 0DH63UZ Insertion of Feeding Device into Stomach, Percutaneous Approach (ICD-10-PCS; 2023-11-17)
DX: I63.9 Cerebral infarction, unspecified (principal); G92.8 Other toxic encephalopathy; J69.0 Pneumonitis due to inhalation of food and vomit; G93.6 Cerebral edema; E87.1 Hypo-osmolality and hyponatremia; D63.8 Anemia in other chronic diseases classified elsewhere; E11.51 Type 2 diabetes mellitus with diabetic peripheral angiopathy without gangrene; G30.9 Alzheimer's disease, unspecified; F02.A0 Dementia in other diseases classified elsewhere, mild, without behavioral disturbance, psychotic disturbance, mood disturbance, and anxiety; I10 Essential (primary) hypertension; I05.0 Rheumatic mitral stenosis; R13.12 Dysphagia, oropharyngeal phase; N40.0 Benign prostatic hyperplasia without lower urinary tract symptoms; E78.00 Pure hypercholesterolemia, unspecified; K59.00 Constipation, unspecified; G25.0 Essential tremor; W19.XXXA Unspecified fall, initial encounter; R29.6 Repeated falls; R63.39 Other feeding difficulties; R27.0 Ataxia, unspecified; R47.1 Dysarthria and anarthria; Z79.899 Other long term (current) drug therapy; Z87.891 Personal history of nicotine dependence; Z11.52 Encounter for screening for COVID-19; Z82.3 Family history of stroke
CPT/HCPCS: 51798; 70450; 70551; 71046; 74018; 74230; 80048; 80053; 80061; 81003; 81015; 82607; 82728; 82746; 82962; 83036; 83540; 83550; 84443; 85025; 85027; 85610; 87040; 87811; 92526; 92610; 92611; 93005; 93306; 96360; 97116; 97163; 97167; 97530; 97535; 99285